=== PATIENT | female | born 1990 | race Caucasian/White ===

== ENCOUNTER 2016-10-19 20:11 | Observation (INO) | payer BC, OTHER ==
[~2016-10-19] VITALS: Ht 165.1 cm; Wt 74.8 kg
[~2016-10-19 20:11] MED LIST: ALBU17AE3 IH; CEPH500C PO; DOXY100C2 PO; HYDR-757 PO; LEVO500T69 PO; NAPR-243 PO; NITR-65 PO; OXYC-202 PO; PHEN200T27 PO; PNT40TEC PO; PRD20T PO
--- OUTSIDE RECORDS SUMMARY | 2016-10-19 20:15 | XMS REPORT | Continuity of Care Document ---
Author Author [facility] Organization [facility] Address Unknown Phone Unavailable Care Team Providers Care Blog Writer Name Role Phone ADAMRAYMUNDO DO PCP Insurance Providers Payer Name Policy Number Subscriber Name Relationship [facility] [id number] Marisa Zaragoza 18 Self / Same As Patient Advance Directives Directive Response Recorded Date/Time Advance Directives No 11/03/14 4:50pm Organ Donor No 11/03/14 4:50pm Chief Complaint and Reason for Visit Chief Complaint Abdominal/GI Problems Reason for Visit [id number] Problems Active Problems Medical Problem Onset Date Status Bronchitis Unknown Acute Hemorrhagic ovarian cyst Unknown Acute Pneumonia Unknown Acute Right lower quadrant abdominal pain Unknown Acute Right lower quadrant abdominal pain Unknown Acute Threatened miscarriage in early Unknown Acute Medications Current Home Medications Medication Dose Units Route Directions Days/Qty Instructions Start Date Doxycycline Hyclate (Vibramycin) 100 Mg 1 Each Oral Twice A Day 14 Levofloxacin 500 Mg 1 Each Oral Daily 7 08/06/14 Prednisone 20 Mg 40 Mg Oral Daily 8 08/06/14 Hydrocodone Bit/Acetaminophen 1 Each 1 Ea Oral Every 6 Hours as needed for Mild Pain 14 11/03/14 Nitrofurantoin Monohyd/M-Cryst 100 Mg 1 Tab Oral Twice A Day 14 Past Home Medications Medication Directions Ordered Status Nitrofurantoin Macrocrystals 100 Mg Capsule, 1 Each Oral Twice A Day Discontinued Cephalexin Monohydrate (Keflex) 500 Mg Capsule, 1 Each Oral Four Times Daily 12/14/13 Discontinued Phenazopyridine Hcl 200 Mg Tablet, 1 Each Oral Three Times A Day as needed for Pain 12/14/13 Discontinued Albuterol 17 Gm Inh, 2 [place] Inhalation Every 4HRS as needed for Shortness Of Breath 01/19/14 Discontinued Social History Social History Problem Response Recorded Date/Time Alcohol Use Denies Use 11/03/2014 4:50pm Recreational Drug Use No 11/03/2014 4:50pm Recent Foreign Travel No 01/20/2014 1:54am Recent Infectious Disease Exposure No 01/20/2014 1:54am Hospitalization with Isolation Denies 01/17/2016 8:42pm Hospital Discharge Instructions No hospital discharge instructions. Plan of Care Discharge Date 01/17/16 10:44pm Disposition 01 HOME, SELF-CARE Condition at Discharge Improved Instructions/Education Provided Threatened Miscarriage (ED) Prescriptions See Medication Section Referrals RAYMUNDO MEDINA DO - Primary Care Physician RERE SPRING MD - Additional Instructions/Education All discharge instructions reviewed with patient and/or family. Voiced understanding. Medications as instructed. Continue usual home medications. Drink plenty of fluids. No intercourse until released by your melt room operator. Follow-up Dr. Spring this week for recheck, repeat lab work, and scheduling outpatient repeat ultrasound. Call first thing tomorrow morning for appointment time. No tampons or vaginal douches. Return to the emergency department immediately for worsened pain, vaginal bleeding with greater than 2 pads per hour for greater than 2 hours, vaginal discharge, inability to urinate , painful urination, or any other concerns. Functional Status No functional status results. Allergies, Adverse Reactions, Alerts No known allergies. Immunizations No immunization records. Vital Signs Acute Vital Signs Vital Response Date/Time Temperature (Fahrenheit) 99.0 degrees F (97.6 - 99.5) 01/17/2016 8:42pm Temperature (Calculated Celsius) 37.92592 degrees C (36.4 - 37.5) 01/17/2016 8:42pm Temperature Source Temporal 01/17/2016 8:42pm Pulse Rate (adult) 0 bpm (60 - 90) 01/17/2016 10:44pm Respiratory Rate 0 bpm (12 - 24) 01/17/2016 10:44pm O2 Sat by Pulse Oximetry 0 % (88 - 100) 01/17/2016 10:44pm Blood Pressure 0/0 mm Hg 01/17/2016 10:44pm Blood Pressure Mean 89 mm Hg 01/17/2016 8:42pm Pain Pain Intensity 0 01/17/2016 10:44pm Height (Feet) 5 feet 01/17/2016 8:42pm Height (Inches) 5 inches 01/17/2016 8:42pm Height (Calculated Centimeters) 165.266574 cm 01/17/2016 8:42pm Weight (Pounds) 150 pounds 01/17/2016 8:42pm Weight (Calculated Kilograms) 68.644714 kilograms 01/17/2016 8:42pm Height 5 ft 5 in Weight 150 lb Body Mass Index 25.0 kg/m^2 Results Laboratory Results Test Name Result Units Flags Reference Collection Date/Time Result Date/ Time Comments White Blood Count 13.5 10^3/uL H 4.3-11.0 01/17/2016 9:02pm 01/17/2016 9: 09pm Red Blood Count 4.66 10^6/uL 4.35-5.85 01/17/2016 9:02pm 01/17/2016 9: 09pm Hemoglobin 14.6 G/DL 11.5-16.0 01/17/2016 9:02pm 01/17/2016 9:09pm Hematocrit 42 % 35-52 01/17/2016 9:02pm 01/17/2016 9:09pm Mean Corpuscular Volume 90 FL 80-99 01/17/2016 9:02pm 01/17/2016 9: 09pm Mean Corpuscular Hemoglobin 31 PG 25-34 01/17/2016 9:02pm 01/17/2016 9: 09pm Mean Corpuscular Hemoglobin Concent 35 G/DL 32-36 01/17/2016 9:02pm 9:09pm Red Cell Distribution Width 12.7 % 10.0-14.5 01/17/2016 9:02pm 2015 9:09pm Platelet Count 295 10^3/uL 130-400 01/17/2016 9:02pm 01/17/2016 9:09pm Mean Platelet Volume 10.8 FL H 7.4-10.4 01/17/2016 9:02pm 01/17/2016 9: 09pm Neutrophils (%) (Auto) 61 % 42-75 01/17/2016 9:02pm 01/17/2016 9:09pm Lymphocytes (%) (Auto) 28 % 12-44 01/17/2016 9:02pm 01/17/2016 9:09pm Monocytes (%) (Auto) 9 % 0-12 01/17/2016 9:02pm 01/17/2016 9:09pm Eosinophils (%) (Auto) 2 % 0-10 01/17/2016 9:02pm 01/17/2016 9:09pm Basophils (%) (Auto) 0 % 0-10 01/17/2016 9:02pm 01/17/2016 9:09pm Neutrophils # (Auto) 8.2 X 10^3 H 1.8-7.8 01/17/2016 9:02pm 01/17/2016 9: 09pm Lymphocytes # (Auto) 3.8 X 10^3 1.0-4.0 01/17/2016 9:02pm 01/17/2016 9: 09pm Monocytes # (Auto) 1.3 X 10^3 H 0.0-1.0 01/17/2016 9:02pm 01/17/2016 9: 09pm Eosinophils # (Auto) 0.2 10^3/uL 0.0-0.3 01/17/2016 9:02pm 01/17/2016 9 :09pm Basophils # (Auto) 0.0 10^3/uL 0.0-0.1 01/17/2016 9:02pm 01/17/2016 9: 09pm Urine Color YELLOW 01/17/2016 9:04pm 01/17/2016 9:27pm Urine Clarity CLEAR 01/17/2016 9:04pm 01/17/2016 9:27pm Urine pH 8 5-9 01/17/2016 9:04pm 01/17/2016 9:27pm Urine Specific [place] 1.015 * 1.016-1.022 01/17/2016 9:04pm 2015 9:27pm Urine Protein NEGATIVE NEGATIVE 01/17/2016 9:04pm 01/17/2016 9:27pm Urine Glucose (UA) NEGATIVE NEGATIVE 01/17/2016 9:04pm 01/17/2016 9: 27pm Urine RBC (Auto) 2+ * NEGATIVE 01/17/2016 9:04pm 01/17/2016 9:27pm Urine Ketones NEGATIVE NEGATIVE 01/17/2016 9:04pm 01/17/2016 9:27pm Urine Nitrite NEGATIVE NEGATIVE 01/17/2016 9:04pm 01/17/2016 9:27pm Urine Bilirubin NEGATIVE NEGATIVE 01/17/2016 9:04pm 01/17/2016 9: 27pm Urine Urobilinogen NORMAL MG/DL NORMAL 01/17/2016 9:04pm 01/17/2016 9: 27pm Urine Leukocyte Esterase NEGATIVE NEGATIVE 01/17/2016 9:04pm 2015 9:27pm Urine RBC 0-2 /HPF 01/17/2016 9:04pm 01/17/2016 9:27pm Urine WBC NONE /HPF 01/17/2016 9:04pm 01/17/2016 9:27pm Urine Bacteria TRACE /HPF 01/17/2016 9:04pm 01/17/2016 9:27pm Urine Squamous Epithelial Cells 2-5 /HPF 01/17/2016 9:04pm 2015 9:27pm Urine Crystals NONE /LPF 01/17/2016 9:04pm 01/17/2016 9:27pm Urine Casts NONE /LPF 01/17/2016 9:04pm 01/17/2016 9:27pm Urine Mucus NEGATIVE /LPF 01/17/2016 9:04pm 01/17/2016 9:27pm Urine Culture Indicated NO 01/17/2016 9:04pm 01/17/2016 9:27pm Procedures No known history of procedures. Encounters Encounter Location Arrival/Admit Date Discharge/Depart Date Attending Provider Departed Emergency Room [facility] 01/17/16 8:24pm 01/16 10:44pm SINTIA JOHNSON Recent Diagnosis
[2016-10-19 20:58] LABS: BASOPHILS % (AUTO) 0 % (0-10); EOSINOPHILS # (AUTO) 0.2 10^3/uL (0.0-0.3); EOSINOPHILS % (AUTO) 1 % (0-10); LYMPHOCYTES # (AUTO) 2.6 X 10^3 (1.0-4.0); LYMPHOCYTES % (AUTO) 15 % (12-44); MEAN CORPUSCULAR HEMOGLOBIN 31 PG (25-34); MEAN CORPUSCULAR HGB CONC 35 G/DL (32-36); MEAN CORPUSCULAR VOLUME 90 FL (80-99); MEAN PLATELET VOLUME 10.4 FL (7.4-10.4); MONOCYTES # (AUTO) 1.3 X 10^3 (0.0-1.0); MONOCYTES % (AUTO) 8 % (0-12); NEUTROPHILS # (AUTO) 13.4 X 10^3 (1.8-7.8); NEUTROPHILS % (AUTO) 77 % (42-75); PLATELET COUNT 303 10^3/uL (130-400); RED BLOOD COUNT 4.01 10^6/uL (4.35-5.85); RED CELL DISTRIBUTION WIDTH 13.6 % (10.0-14.5); WHITE BLOOD COUNT 17.5 10^3/uL (4.3-11.0)
[2016-10-19 21:08] LABS: BAND NEUTROPHILS 2 %; BASOPHILS % (MANUAL) 1 %; EOSINOPHILS % (MANUAL) 2 %; LYMPHOCYTES % (MANUAL) 19 %; NEUTROPHILS % (MANUAL) 71 %
[2016-10-19 21:09] LABS: INR 0.9 (0.8-1.4); PROTHROMBIN TIME PATIENT 12.2 SEC (12.2-14.7)
[2016-10-19 21:20] LABS: ALANINE AMINOTRANSFERASE 6 U/L (0-55); ALBUMIN 3.7 G/DL (3.2-4.5); AMYLASE 61 U/L (25-125); ANION GAP 11 MMOL/L (5-14); ASPARTATE AMINO TRANSFERASE 11 U/L (5-34); BILIRUBIN,TOTAL 0.2 MG/DL (0.1-1.0); BLOOD UREA NITROGEN 8 MG/DL (7-18); BUN/CREATININE RATIO 13; CALCIUM 8.6 MG/DL (8.5-10.1); CARBON DIOXIDE 18 MMOL/L (21-32); CHLORIDE 108 MMOL/L (98-107); CREATINE KINASE 34 U/L (29-168); GFR ESTIMATED > 60; GLUCOSE 78 MG/DL (70-105); LIPASE 27 U/L (8-78); MAGNESIUM 2.1 MG/DL (1.8-2.4); POTASSIUM 3.6 MMOL/L (3.6-5.0); SODIUM 137 MMOL/L (135-145); TOTAL PROTEIN 6.2 G/DL (6.4-8.2)
--- NOTE | 2016-10-19 21:24 | Diagnostic Imaging Report ---
INDICATION: Cough, shortness of breath. COMPARISON: 08/05/14. EXAMINATION: Frontal and lateral views of the chest were obtained. FINDINGS: Clear lungs, bilaterally. The heart size is normal. There is no pneumothorax. The osseous structures are normal. IMPRESSION: Negative chest. Dictated by: Dictated on workstation # [id number]
[2016-10-19 21:27] LABS: TROPONIN I < 0.30 NG/ML (<0.30)
--- NOTE | 2016-10-19 21:39 | ED Chest Pain ---
General Chief Complaint: Respiratory Problems Stated Complaint: SOA;CHEST PAIN Source: patient History of Present Illness Time seen by provider: 20:30 Initial Comments PT ARRIVES VIA POV FROM HOME C/O CHEST PAIN, SHORTNESS OF BREATH AND ELEVATED HEART RATE THESE SYMPTOMS HAVE BEEN GOING ON FOR A COUPLE OF WEEKS STATES WHOLE FRONT OF HER CHEST HURTS TO BREATHE HAS HAD A NON-PRODUCTIVE COUGH FOR 6 MONTHS NO FEVER NO SWELLING IN LEGS/ FEET OR PAIN IN CAL[place]ES PT STATES TONIGHT SHE WAS WALKING TO THE KITCHEN AND SHE GOT SHORT OF BREATH AND HER HEART RATE WAS 120 SYMPTOMS ARE NO DIFFERENT TONIGHT AND ARE NOT PRESENT NOW. PT IS 26 WEEKS --HAS BEEN REFERRED TO DR. REYES AND SAW HIM ON Monday AND HOLTER MONITOR AND ECHOCARDIOGRAM ARE ORDERED FOR TOMORROW NO ABDOMINAL PAIN NO VAGINAL BLEEDING OR DISCHARGE NO URINARY SYMPTOMS PCP: DR. MEDINA IN [place] OB: DR. FLOWER Allergies and Home Medications Allergies Coded Allergies: No Known Drug Allergies (Unverified , 02/18/16) Home Medications Ioi159/Iron Fumarate/FA/Dss 1 Each Tablet 1 EACH PO (Reported) Review of Systems Constitutional: no symptoms reportedNo diaphoresis, No dizziness EENTM: No Symptoms Reported Respiratory: See HPI SOA With Exertion Cardiovascular: See HPI Chest PainDenies Edema, Denies Lightheadedness, PalpitationsDenies Syncope Gastrointestinal: No Symptoms ReportedDenies Abdominal Pain, Denies Nausea, Denies Vomiting Genitourinary: No Symptoms Reported See HPI Musculoskeletal: no symptoms reported Skin: no symptoms reported Psychiatric/Neurological: No Symptoms ReportedDenies Headache, Denies Numbness , Denies Paresthesia, Denies Tingling, Denies Weakness Endocrine: No Symptoms Reported Hematologic/Lymphatic: No Symptoms Reported Past Kofvnfu-Yznddt-Nasvxb Hx Patient Social History Alcohol Use: Denies Use Recreational Drug Use: No Smoking Status: Former Smoker (1/2 PPD--QUIT WHEN BECOMING ) Type Used: Cigarettes 2nd Hand Smoke Exposure: No Recent Foreign Travel: No Contact w/Someone Who Travel: No Recent Hopitalizations: No Seasonal Allergies Seasonal Allergies: No Surgeries HX Surgeries: Yes (D&C; X 1) Surgeries: Appendectomy, Section, Tonsillectomy Respiratory Hx Respiratory Disorders: No Cardiovascular Hx Cardiac Disorders: No Neurological Hx Neurological Disorders: No Reproductive System : Yes Hx : 4 Hx Para: 1 Hx Total # of Abortions (Spona: 2 Hx Reproductive Disorders: Yes (2 MISCARRIAGES) HIV/AIDS: No Female Reproductive Disorders: Endometriosis, 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 Genitourinary Hx Genitourinary Disorders: Yes Genitourinary Disorders: UTI-Chronic Gastrointestinal Hx Gastrointestinal Disorders: No Musculoskeletal Hx Musculoskeletal Disorders: No Endocrine Hx Endocrine Disorders: No HEENT HX ENT Disorders: No Cancer Hx Cancer: No Psychosocial Hx Psychiatric Problems: No Integumentary HX Skin/Integumentary Disorder: No Blood Transfusions Hx Blood Disorders: No Adverse Reaction to a Blood Tr: No (N/A) Physical Exam Vital Signs Vital Sign - Last 12Hours 10/19/16 20:34 Temp 98.8 Pulse 99 Resp 20 B/P 118/77 Pulse Ox 98 O2 Delivery Room Air Capillary Refill : General Appearance: No Apparent Distress WD/WN HEENT: PERRL/EOMI Neck: Full Range of Motion Normal Inspection Non Tender Supple Respiratory: Normal Breath Sounds No Accessory Muscle Use No Respiratory Distress Cardiovascular: Regular Rate, Rhythm No Edema No JVD No Murmur Normal Peripheral Pulses Gastrointestinal: Normal Bowel Sounds No Pulsatile Mass Non Tender Soft Other (GRAVID UTERUS) Extremity: Normal Capillary Refill Normal Inspection Normal Range of Motion Non Tender No Calf Tenderness No Pedal Edema Neurologic/Psychiatric: Alert Oriented x3 No Motor/Sensory Deficits Normal 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 Norm as Tested Skin: Normal Color Warm/Dry Progress/Results/Core Measures Results/Orders Lab Results Laboratory Tests Test 10/19/16 20:45 Range/Units Activated Partial Thromboplast Time 26 24-35 SEC Alanine Aminotransferase (ALT/SGPT) 6 0-55 U/L Albumin 3.7 3.2-4.5 G/DL Alkaline Phosphatase 110 40-136 U/L Amylase Level 61 25-125 U/L Anion Gap 11 5-14 MMOL/L Aspartate Amino Transf (AST/SGOT) 11 5-34 U/L B-Type Natriuretic Peptide < 10.0 <100.0 PG/ML BUN/Creatinine Ratio 13 Band Neutrophils 2 % Basophils # (Auto) 0.0 0.0-0.1 10^3/uL Basophils % (Manual) 1 % Basophils (%) (Auto) 0 0-10 % Blood Morphology Comment NORMAL Blood Urea Nitrogen 8 7-18 MG/DL Calcium Level 8.6 8.5-10.1 MG/DL Carbon Dioxide Level 18 L 21-32 MMOL/L Chloride Level 108 H 98-107 MMOL/L Creatine Kinase MB 0.7 <6.6 NG/ML Creatinine 0.60 0.60-1.30 MG/DL Eosinophils # (Auto) 0.2 0.0-0.3 10^3/uL Eosinophils % (Manual) 2 % Eosinophils (%) (Auto) 1 0-10 % Estimat Glomerular Filtration Rate > 60 Glucose Level 78 70-105 MG/DL Hematocrit 36 35-52 % Hemoglobin 12.6 11.5-16.0 G/DL INR Comment 0.9 0.8-1.4 Lipase 27 8-78 U/L Lymphocytes # (Auto) 2.6 1.0-4.0 X 10^3 Lymphocytes % (Manual) 19 % Lymphocytes (%) (Auto) 15 12-44 % Magnesium Level 2.1 1.8-2.4 MG/DL Mean Corpuscular Hemoglobin 31 25-34 PG Mean Corpuscular Hemoglobin Concent 35 32-36 G/DL Mean Corpuscular Volume 90 80-99 FL Mean Platelet Volume 10.4 7.4-10.4 FL Monocytes # (Auto) 1.3 H 0.0-1.0 X 10^3 Monocytes % (Manual) 5 % Monocytes (%) (Auto) 8 0-12 % Neutrophils # (Auto) 13.4 H 1.8-7.8 X 10^3 Neutrophils % (Manual) 71 % Neutrophils (%) (Auto) 77 H 42-75 % Platelet Count 303 130-400 10^3/uL Potassium Level 3.6 3.6-5.0 MMOL/L Prothrombin Time 12.2 12.2-14.7 SEC Red Blood Count 4.01 L 4.35-5.85 10^6/uL Red Cell Distribution Width 13.6 10.0-14.5 % Sodium Level 137 135-145 MMOL/L Total Bilirubin 0.2 0.1-1.0 MG/DL Total Creatine Kinase 34 29-168 U/L Total Protein 6.2 L 6.4-8.2 G/DL Troponin I < 0.30 <0.30 NG/ML White Blood Count 17.5 H 4.3-11.0 10^3/uL My Orders Orders-KOMAL LEONARDO DO Saline Lock/Iv-Start (10/19/16 20:41) Ekg Tracing (10/19/16 20:41) Heart Tones (10/19/16 20:41) Monitor-Rhythm Ecg Trace Only (10/19/16 20:41) Amylase (10/19/16 20:41) BNP (10/19/16 20:41) Cbc With Automated Diff (10/19/16 20:41) Comprehensive Metabolic Panel (10/19/16 20:41) Creatine Kinase (10/19/16 20:41) Creatine Kinase Mb (10/19/16 20:41) Lipase (10/19/16 20:41) Magnesium (10/19/16 20:41) Protime With Inr (10/19/16 20:41) Partial Thromboplastin Time (10/19/16 20:41) Troponin I (10/19/16 20:41) Chest Pa/Lat (2 View) (10/19/16 20:41) Manual Differential (10/19/16 20:45) Vital Signs/I&O Vital Sign - Last 12Hours 10/19/16 20:34 Temp 98.8 Pulse 99 Resp 20 B/P 118/77 Pulse Ox 98 O2 Delivery Room Air Progress Note : Progress Note NO SYMPTOMS DURING ER STAY ECG Initial ECG Impression Time: 20:43 Initial ECG Rate: 85 Initial ECG Rhythm: Normal Sinus Initial ECG Impression: Normal Initial ECG Comparisson: No Previous ECG Available Diagnostic Imaging Comments CXR--NO ACUTE PROCESS, PER RADIOLOGIST REPORT @ 4 Reviewed: Reviewed by Me Departure Communication Progress Notes 2134--SPOKE WITH DR. FLOWER--ACCEPTS PT FOR ADMIT. Impression Impression: Primary Impression: Chest pain Additional Impressions: Palpitations Dyspnea 26 weeks gestation of Disposition: 09 ADMITTED INPATIENT Condition: Stable Decision to Admit Reason: Admit from ER (General) Decision to Admit/Date: Oct 19, 2016 Time/Decision to Admit Time: 21:35 Departure-Patient Inst. Referrals: RAYMUNDO MEDINA DO (PCP/Family) Primary Care Physician KOMAL LEONARDO DO Oct 19, 2016 21:39
[2016-10-19 22:10] VITALS: BP 105/68
[2016-10-19] MEDS ORDERED: PREN-53 PO (23:12)
[2016-10-20 02:00] VITALS: BP 92/57
[2016-10-20 06:01] VITALS: BP 89/59
[2016-10-20 06:18] LABS: BASOPHILS % (AUTO) 0 % (0-10); EOSINOPHILS # (AUTO) 0.2 10^3/uL (0.0-0.3); EOSINOPHILS % (AUTO) 2 % (0-10); LYMPHOCYTES # (AUTO) 2.2 X 10^3 (1.0-4.0); LYMPHOCYTES % (AUTO) 19 % (12-44); MEAN CORPUSCULAR HEMOGLOBIN 31 PG (25-34); MEAN CORPUSCULAR HGB CONC 34 G/DL (32-36); MEAN CORPUSCULAR VOLUME 91 FL (80-99); MEAN PLATELET VOLUME 10.3 FL (7.4-10.4); MONOCYTES # (AUTO) 1.1 X 10^3 (0.0-1.0); MONOCYTES % (AUTO) 9 % (0-12); NEUTROPHILS # (AUTO) 8.4 X 10^3 (1.8-7.8); NEUTROPHILS % (AUTO) 70 % (42-75); PLATELET COUNT 288 10^3/uL (130-400); RED BLOOD COUNT 3.63 10^6/uL (4.35-5.85); RED CELL DISTRIBUTION WIDTH 13.7 % (10.0-14.5); WHITE BLOOD COUNT 11.9 10^3/uL (4.3-11.0)
[2016-10-20 06:45] LABS: ALANINE AMINOTRANSFERASE 6 U/L (0-55); ALBUMIN 3.2 G/DL (3.2-4.5); ANION GAP 10 MMOL/L (5-14); ASPARTATE AMINO TRANSFERASE 9 U/L (5-34); BILIRUBIN,TOTAL 0.1 MG/DL (0.1-1.0); BLOOD UREA NITROGEN 6 MG/DL (7-18); BUN/CREATININE RATIO 11; CALCIUM 8.1 MG/DL (8.5-10.1); CARBON DIOXIDE 17 MMOL/L (21-32); CHLORIDE 110 MMOL/L (98-107); CREATININE SERUM 0.55 MG/DL (0.60-1.30); GFR ESTIMATED > 60; GLUCOSE 120 MG/DL (70-105); POTASSIUM 3.6 MMOL/L (3.6-5.0); SODIUM 137 MMOL/L (135-145); TOTAL PROTEIN 5.3 G/DL (6.4-8.2)
[2016-10-20 08:15] VITALS: BP 112/63
--- NOTE | 2016-10-20 08:27 | Consultation-Cardiology ---
HPI-Cardiology Cardiology Consultation Date of Consultation 10/20/16 Date of Admission Indication: palpitation HPI 26 years old lady, , has been having recurrent palpitation, seen in my office earlier this week and scheduled for echocardiogram and Holter evaluation. Yesterday started having worsening palpitation shortness of breath with minimal exertion at home. Came into the emergency room, so far workup has been negative. She is feeling better. Complain about palpitation with minimal exertion increasing dyspnea with minimal exertion addition to cough, her chest x -ray did not show any acute abnormality, has mild leukocytosis. BNP is normal. Home Medications & Allergies Allergies: Coded Allergies: No Known Drug Allergies (Unverified , 02/18/16) Home Medication List Reviewed: Yes CVH-Ftncuu-Kdrwua Hx Patient Social History Marital Status: Alcohol Use: Denies Use Recreational Drug Use: No Smoking Status: Former Smoker (/2 PPD--QUIT WHEN BECOMING ) Type Used: Cigarettes 2nd Hand Smoke Exposure: No Recent Foreign Travel: No Recent Infectious Disease Expo: No Recent Hopitalizations: No Physical Abuse Screen: No Sexual Abuse: No Immunizations Up To Date Date of Influenza Vaccine: Jul 20, 2017 Past Medical History no significant past medical history Family Medical History Family Medical Hx noncontributory to her current condition Constitutional: no symptoms reported see HPI EENTM: no symptoms reported see HPI Respiratory: see HPI cough dyspnea on exertionNo hemoptysis, No orthopnea, No phlegm, No short of breath, No stridor, No wheezing, No other Cardiovascular: see HPI chest painNo edema, No Hx of Intervention, palpitationsNo syncope, No vascular heart diseas, No other Gastrointestinal: no symptoms reported see HPI Genitourinary: no symptoms reported see HPI Musculoskeletal: no symptoms reported see HPI Skin: no symptoms reported see HPI Psychiatric/Neurological: No Symptoms Reported See HPI Reviewed Test Results Reviewed Test Results Lab Laboratory Tests Test 10/19/16 20:45 10/20/16 06:08 Range/Units Activated Partial Thromboplast Time 26 24-35 SEC Alanine Aminotransferase (ALT/SGPT) 6 6 0-55 U/L Albumin 3.7 3.2 3.2-4.5 G/DL Alkaline Phosphatase 110 96 40-136 U/L Amylase Level 61 25-125 U/L Anion Gap 11 10 5-14 MMOL/L Aspartate Amino Transf (AST/SGOT) 11 9 5-34 U/L B-Type Natriuretic Peptide < 10.0 <100.0 PG/ML BUN/Creatinine Ratio 13 11 Band Neutrophils 2 % Basophils # (Auto) 0.0 0.0 0.0-0.1 10^3/uL Basophils % (Manual) 1 % Basophils (%) (Auto) 0 0 0-10 % Blood Morphology Comment NORMAL Blood Urea Nitrogen 8 6 L 7-18 MG/DL Calcium Level 8.6 8.1 L 8.5-10.1 MG/DL Carbon Dioxide Level 18 L 17 L 21-32 MMOL/L Chloride Level 108 H 110 H 98-107 MMOL/L Creatine Kinase MB 0.7 <6.6 NG/ML Creatinine 0.60 0.55 L 0.60-1.30 MG/DL Eosinophils # (Auto) 0.2 0.2 0.0-0.3 10^3/uL Eosinophils % (Manual) 2 % Eosinophils (%) (Auto) 1 2 0-10 % Estimat Glomerular Filtration Rate > 60 > 60 Glucose Level 78 120 H 70-105 MG/DL Hematocrit 36 33 L 35-52 % Hemoglobin 12.6 11.3 L 11.5-16.0 G/DL INR Comment 0.9 0.8-1.4 Lipase 27 8-78 U/L Lymphocytes # (Auto) 2.6 2.2 1.0-4.0 X 10^3 Lymphocytes % (Manual) 19 % Lymphocytes (%) (Auto) 15 19 12-44 % Magnesium Level 2.1 1.8-2.4 MG/DL Mean Corpuscular Hemoglobin 31 31 25-34 PG Mean Corpuscular Hemoglobin Concent 35 34 32-36 G/DL Mean Corpuscular Volume 90 91 80-99 FL Mean Platelet Volume 10.4 10.3 7.4-10.4 FL Monocytes # (Auto) 1.3 H 1.1 H 0.0-1.0 X 10^3 Monocytes % (Manual) 5 % Monocytes (%) (Auto) 8 9 0-12 % Neutrophils # (Auto) 13.4 H 8.4 H 1.8-7.8 X 10^3 Neutrophils % (Manual) 71 % Neutrophils (%) (Auto) 77 H 70 42-75 % Platelet Count 303 288 130-400 10^3/uL Potassium Level 3.6 3.6 3.6-5.0 MMOL/L Prothrombin Time 12.2 12.2-14.7 SEC Red Blood Count 4.01 L 3.63 L 4.35-5.85 10^6/uL Red Cell Distribution Width 13.6 13.7 10.0-14.5 % Sodium Level 137 137 135-145 MMOL/L Total Bilirubin 0.2 0.1 0.1-1.0 MG/DL Total Creatine Kinase 34 29-168 U/L Total Protein 6.2 L 5.3 L 6.4-8.2 G/DL Troponin I < 0.30 <0.30 NG/ML White Blood Count 17.5 H 11.9 H 4.3-11.0 10^3/uL Physical Exam Vital Signs Vital Sign - Last 12Hours 10/19/16 20:34 Temp 98.8 Pulse 99 Resp 20 B/P 118/77 Pulse Ox 98 O2 Delivery Room Air Capillary Refill : Less Than 3 Seconds General Appearance: No Apparent Distress WD/WN Eyes: Bilateral Eye EOMI, Bilateral Eye Normal Inspection, Bilateral Eye PERRL HEENT: PERRL/EOMI TMs Normal Normal ENT Inspection Pharynx Normal Neck: Full Range of Motion Normal Inspection Non Tender Supple Carotid Bruit Respiratory: Chest Non Tender Lungs Clear Normal Breath Sounds No Accessory Muscle Use No Respiratory Distress Cardiovascular: Regular Rate, Rhythm No Edema No Gallop No JVD No Murmur Normal Peripheral Pulses Gastrointestinal: Normal Bowel Sounds No Organomegaly No Pulsatile Mass Non Tender Soft Other () Back: Normal Inspection No CVA Tenderness No Vertebral Tenderness Extremity: Normal Capillary Refill Normal Inspection Normal Range of Motion Non Tender No Calf Tenderness No Pedal Edema Neurologic/Psychiatric: Alert Oriented x3 No Motor/Sensory Deficits Normal Mood/Affect Skin: Normal Color Warm/Dry Lymphatic: No Adenopathy A/P-Cardiology Admission Diagnosis palpitation Shortness of breath Hypotension Assessment/Plan Recurrent palpitation, worsening episode last night with a heart rate 120-130 with minimal exertion, during the hospital stay on telemetry did not have any arrhythmia, heart rate is less than 100. Cannot tolerate beta alissa due to hypotension, I will give IV fluid. She was scheduled for Holter monitor and echocardiogram as an outpatient, I will evaluate an echo and evaluate venous Doppler study of her lower extremities. Still planning for Holter monitor as an outpatient. Borderline hypotension, I will give IV fluid and monitor. Episode of dizziness and lightheadedness, educated on increasing fluid intake and monitoring her symptoms. , [address] Reagan Family history of hypertension History of tobaccoism, she has stopped smoking since her . DIONE REYES MD Oct 20, 2016 08:27
[2016-10-20] MEDS ORDERED: NS IV 1000 ML 1,000 ML IV SCH (08:30)
--- NOTE | 2016-10-20 08:58 | Diagnostic Imaging Report ---
EXAMINATION: Bilateral lower extremity duplex venous ultrasound. TECHNIQUE: DVT protocol. Multiple sonographic images with color Doppler and waveform interrogation were performed of the lower extremity veins, bilaterally, with compression and augmentation maneuvers. INDICATION: Chest pain. FINDINGS: The lower extremity veins from the common femoral veins to below the knee veins were examined with normal color-flow, compressibility and normal waveform demonstrated. The great saphenous vein bilaterally is patent. IMPRESSION: No evidence of DVT in either lower extremity. Dictated by: Dictated on workstation # [id number]
[2016-10-20] MEDS: NS IV 1000 ML 1,000 ML IV SCH ×2 (09:15→11:20)
--- NOTE | 2016-10-20 09:24 | Discharge Inst-Women's Service ---
Discharge Inst-Women's Serv Consults/Follow Up Additional Follow Up: Yes Orders/Referrals Dr. Flower at next scheduled appointment, and Dr. Leigh(after Holter monitor) Activity Activity: Activity as Tolerated Driving Instructions: You May Drive NO SMOKING: NO SMOKING Diet Discharge Diet: No Restrictions Symptoms to Report to : Bleeding Excessive, Pain Increased, Fever Over 101 Degrees F, Pain/Pressure in Chest, Questions/Concerns For Any Problems or Questions: Contact Your Physician MERY FLOWER DO Oct 20, 2016 9:24 am
== END 2016-10-20 09:24 | disposition home or self-care (01) ==
LOC: EDUNIT# 20:11 → ER 20:12 → UNDOADMOB 21:35 → LDRP 21:35 → UNDODISOB 10-20 12:30
PROVIDERS: ADMIT Obstetrics & Gynecology; ATTEND Obstetrics & Gynecology
DX: O99.412 Diseases of the circulatory system complicating pregnancy, second trimester (principal); R00.2 Palpitations; R06.02 Shortness of breath; Z3A.26 26 weeks gestation of pregnancy; Z87.891 Personal history of nicotine dependence
CPT/HCPCS: 36415; 71020; 80053; 82150; 82550; 82553; 83690; 83735; 83880; 84484; 85007; 85025; 85027; 85610; 85730; 93005; 93041; 93970; 96360; 96361; G0378

== ENCOUNTER 2016-10-20 12:39 | Outpatient (RCR) | payer BC, OTHER ==
[~2016-10-20 12:39] MED LIST changes: +PREN-53 PO
--- OUTSIDE RECORDS SUMMARY | 2016-10-20 12:43 | XMS REPORT | Continuity of Care Document ---
Author Author [facility] Organization [facility] [address] Address Unknown Phone Unavailable Care Team Providers Care Paint Stockman Name Role Phone ADAMRAYMUNDO DO PCP Insurance Providers Payer Name Policy Number Subscriber Name Relationship [facility] [id number] Marisa Zaragoza 18 Self / Same As Patient Advance Directives Directive Response Recorded Date/Time Advance Directives No 11/03/14 4:50pm Organ Donor No 11/03/14 4:50pm Chief Complaint and Reason for Visit Chief Complaint Abdominal/GI Problems Reason for Visit [id number] Problems Active Problems Medical Problem Onset Date [...] 12/14/13 Discontinued Albuterol 17 Gm Inh, 2 [place] Inhalation Every 4HRS as needed for Shortness [...] fluids. No intercourse until released by your subscription agent. Follow-up Dr. Spring this week for recheck, [...] - 99.5) 01/17/2016 8:42pm Temperature (Calculated Celsius) 37.59846 degrees C (36.4 - 37.5) 01/17/2016 8:42pm [...] 5 inches 01/17/2016 8:42pm Height (Calculated Centimeters) 165.893183 cm 01/17/2016 8:42pm Weight (Pounds) 150 pounds 01/17/2016 8:42pm Weight (Calculated Kilograms) 68.416696 kilograms 01/17/2016 8:42pm Height 5 ft 5 [...] 5-9 01/17/2016 9:04pm 01/17/2016 9:27pm Urine Specific [place] 1.015 * 1.016-1.022 01/17/2016 9:04pm 2015 9:27pm [...] Date Attending Provider Departed Emergency Room [facility] [address] 01/17/16 8:24pm 01/16 10:44pm SINTIA JOHNSON Recent Diagnosis
--- NOTE | 2016-10-21 10:20 | ECHOCARDIOGRAPHY REPORT ---
PROCEDURE PHYSICIAN: DIONE REYES DATE OF PROCEDURE: 10/20/2016 TWO DIMENSIONAL ECHOCARDIOGRAM REPORT PRIMARY PHYSICIAN: OTHER PHYSICIAN: REFERRING PHYSICIAN: Dr. Reagan ORDERING PHYSICIAN: INDICATION FOR THE PROCEDURE: Chest pain, palpitations MEASUREMENTS DERIVED VALUES LV DIAMETER (LAX) NORMALS NORMALS Diastolic 4.6 (3.6-5.2) Eject. Fract. 60% (60%+/-6%) Systolic (2.3-3.9) Diastolic Vol. % Shortening (0.22-0.42) Systolic Vol. Aortic Root IVS THICKNESS Diastolic 1. (0.6-1.1) LVPW THICKNESS Diastolic 1. (0.6-1.1) LA DIAMETER Systolic 3.5 (2.1-3.7) FINDINGS: 1. Technical quality is good. 2. The left ventricle is normal in size with normal contractility. Systolic function appeared to be normal. Estimated ejection fraction 60%. 3. The left atrium is normal in size. No clot or thrombus were seen within the left atrium. 4. The right atrium and right ventricle are normal in size. No clot or thrombus were seen within the right side. 5. Mitral valve is normal in morphology with mild mitral regurgitation noted by color Doppler flow. No mitral valve prolapse. No mitral valve stenosis. 6. Aortic valve is trileaflet with normal opening and closing pattern. No significant aortic stenosis or regurgitation was seen. 7. Tricuspid valve is normal in morphology with mild tricuspid regurgitation noted by color Doppler flow. Doppler across tricuspid valve estimated pulmonary artery pressure of 26+ right atrial pressure. 8. Pulmonic valve is functioning normally. 9. No pericardial effusion. CONCLUSION: 1. Normal left ventricular size and systolic function. Estimated ejection fraction 60%. 2. Mild mitral and tricuspid regurgitation. 3. Estimated pulmonary artery pressure of 30 to 35 mmHg. Job ID: [id number] Dictated Date: 10/20/2016 14:11:27 Autocad Operator Date: 10/21/2016 10:16:20 / sd
[2017-01-19] MEDS ORDERED: DOCU100C37 PO (08:08)
[2017-01-19] MEDS ORDERED: HYDR-3812 PO (08:08)
[2017-01-19] MEDS ORDERED: IBUP-1773 PO (08:08)
== END 2017-01-18 | disposition home or self-care (01) ==
LOC: CARD 12:39
PROVIDERS: ATTEND Internal Medicine Cardiovascular Disease
DX: O99.89 Other specified diseases and conditions complicating pregnancy, childbirth and the puerperium (principal); R00.2 Palpitations; Z82.49 Family history of ischemic heart disease and other diseases of the circulatory system
CPT/HCPCS: 93225; 93226; 93306

== ENCOUNTER 2016-10-27 08:52 | Outpatient (CLI) | payer BC, OTHER ==
[~2016-10-27] VITALS: Ht 165.1 cm; Wt 74.6 kg
--- OUTSIDE RECORDS SUMMARY | 2016-10-27 08:57 | XMS REPORT | Continuity of Care Document ---
Author Author [facility] Organization [facility] Address Unknown Phone Unavailable Care Team Providers Care Cupola Repairer Name Role Phone ADAMRAYMUNDO DO PCP Insurance Providers Payer Name Policy Number Subscriber Name Relationship Rust [id number] Marisa Zaragoza 18 Self / Same As Patient Advance Directives Directive Response Recorded Date/Time Advance Directives No 11/03/14 4:50pm Organ Donor No 11/03/14 4:50pm Chief Complaint and Reason for Visit Chief Complaint Abdominal/GI Problems Reason for Visit [id number] Problems Active Problems Medical Problem Onset Date [...] 12/14/13 Discontinued Albuterol 17 Gm Inh, 2 [place] Inhalation Every 4HRS as needed for Shortness [...] fluids. 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 Follow-up Dr. Spring this week for recheck, [...] - 99.5) 01/17/2016 8:42pm Temperature (Calculated Celsius) 37.95975 degrees C (36.4 - 37.5) 01/17/2016 8:42pm [...] 5 inches 01/17/2016 8:42pm Height (Calculated Centimeters) 165.151282 cm 01/17/2016 8:42pm Weight (Pounds) 150 pounds 01/17/2016 8:42pm Weight (Calculated Kilograms) 68.860934 kilograms 01/17/2016 8:42pm Height 5 ft 5 [...] 5-9 01/17/2016 9:04pm 01/17/2016 9:27pm Urine Specific [place] 1.015 * 1.016-1.022 01/17/2016 9:04pm 2015 9:27pm [...] Date Attending Provider Departed Emergency Room [facility] 01/17/16 8:24pm 01/16 10:44pm SINTIA JOHNSON Recent Diagnosis
[2016-10-27] MEDS ORDERED: ceFAZolin 1,000 MG (ANCEF) VIAL ONE (11:14)
[2016-10-27] MEDS ORDERED: ONDANSETRON 4 MG/2 ML (SDV) Z0FRAN IVP PRN (11:15)
[2016-10-27] MEDS ORDERED: morphine INJ 5 MG/ML 1 ML VIAL IVP PRN (11:15)
--- NOTE | 2016-10-27 11:19 | Diagnostic Imaging Report ---
INDICATION: Gross hematuria, 27 weeks . COMPARISON: None. DISCUSSION: Transabdominal sonographic evaluation of the bilateral kidneys and urinary bladder was performed. There is [id number] right hydronephrosis of uncertain etiology. No shadowing stone identified. The left kidney is normal in echotexture and size. No hydronephrosis on the left. No renal mass identified. Urinary bladder is decompressed. The ureteral jets were not visualized. The right kidney measures 13.5 cm. The left kidney measures 11.4 cm. IMPRESSION: 1. Hnuumudn-ek-knyxdg right hydronephrosis of uncertain etiology. Dictated by: Dictated on workstation # [id number]
[2016-10-27] MEDS ORDERED: morphine INJ 4 MG/ML 1 ML (VIAL/SYRINGE) ONE ×2 (11:20)
--- NOTE | 2016-10-27 11:22 | History & Physical-OB ---
OB - Chief Complaint & HPI Date Date of Admission: Date of Admission: Chief Complaint/History OB-Reason for Admission/Chief: Right hydronephrosis with suspected right nephrolithiasis Hx : 3 Hx Para: 2 Expected Date of Delivery: January 26, 2017 Gestational Age in Weeks: 26 Other reason for admission: Right hydronephrosis with suspected right nephrolithiasis. Patient presents with significant pain and cramping of the right lower abdomen and suprapubically. As well at large blood on UA. Admission Nurse Assessment Rev: Yes Allergies and Home Medications Allergies Coded Allergies: No Known Drug Allergies (Unverified , 02/18/16) Home Medications [id number]/Iron Fumarate/FA/Dss 1 Each Tablet 1 EACH PO (Reported) OB - History Hx of Present Care: Yes Ultrasounds: Normal mid trimester US Obstetrical Complications: None Medical Complications: Other (Hypotension and palpitations) Obstetrical History Hx : 3 Hx Para: 2 Hx Total # of Abortions (Spona: 1 Delivery History Hx Blood Disorders: No Adverse Rxn to Tranfusion: No (N/A) Patient Past Medical History n/a Social History/Family History HIV/AIDS: No Recent Infectious Disease Expo: No 2nd Hand Smoke Exposure: No Immunizations Date of Influenza Vaccine: Jul 20, 2017 OB - Admission Exam Physical Exam HEENT: NCAT Heart: Rhythm Normal Lungs: Clear Abdomen: Gravid Heart Rate: 130's Accelerations: Accelerations Present Decelerations: No Decelerations Short Term Variability: Present Nursing Home Variability: Average (6-25) Contractions on Admission: None OB - Assessment/Plan/Diagnosis Plan Other Plan Patient admitted for IVF bolus, IV pain medication as needed and antibiotic treatment. Straining urine and will anticipate dc later today or tomorrow morning. Discharge Diagnosis Diagnosis: 26 yo @ 28weeks gestation Nephrolithiasis- acute pelvic pain Hematuria Right mild-moderate hydronephrosis MERY FLOWER DO Oct 27, 2016 11:22 am
[2016-10-27] MEDS ORDERED: ceFAZolin INJECTION 1,000 MG in NS (IVPB) 50 ML IV NR (11:24)
[2016-10-27] MEDS ORDERED: morphine INJ 10 MG/ML 1ML (SYR OR VIAL) IV PRN (11:30)
[2016-10-27] MEDS: NS IV 1000 ML 1,000 ML IV SCH ×2 (11:47→16:40)
== END 2016-10-27 18:05 | disposition home or self-care (01) ==
LOC: WSo 08:52 → LDRP 08:53 → WSo 18:05
PROVIDERS: ATTEND Obstetrics & Gynecology
DX: O99.89 Other specified diseases and conditions complicating pregnancy, childbirth and the puerperium (principal); N20.0 Calculus of kidney; N13.30 Unspecified hydronephrosis; Z3A.28 28 weeks gestation of pregnancy
CPT/HCPCS: 76770; 96374; 96375; 99214

== ENCOUNTER → 2016-11-08 | Outpatient (CLI) | payer BC, OTHER ==
--- OUTSIDE RECORDS SUMMARY | 2016-11-08 10:07 | XMS REPORT | Continuity of Care Document ---
Author Author [facility] Organization [facility] Address Unknown Phone Unavailable Care Team Providers Care Gold Leaf Gilder Name Role Phone MERY FLOWER DO PCP Insurance Providers Payer Name Policy Number Subscriber Name Relationship [facility] [id number] Marisa Zaragoza 18 Self / Same As Patient Advance Directives Directive Response Recorded Date/Time Advance Directives No 10/27/16 9:18am Health Care Power of Contract Negotiator No 10/27/16 9:18am Organ Donor Yes 10/27/16 9:18am Resuscitation Status Full Code 10/27/16 9:18am Problems Active Problems Medical Problem Onset Date Status 26 weeks gestation of Unknown Acute Bronchitis Unknown Acute Chest pain Unknown Acute Dyspnea Unknown Acute Hemorrhagic ovarian cyst Unknown Acute Palpitations Unknown Acute Pneumonia Unknown Acute Right lower quadrant abdominal pain Unknown Acute Right lower quadrant abdominal pain Unknown Acute Threatened miscarriage in early Unknown Acute Medications Current Home Medications Medication Dose Units Route Directions Days/Qty Instructions Start Date Aic245/Iron Fumarate/Fa/Dss 1 Each 1 Each Oral 10/19/16 Past Home Medications Medication Directions Ordered Status Nitrofurantoin Macrocrystals 100 Mg Capsule, 1 Each Oral Twice A Day Discontinued Cephalexin Monohydrate (Keflex) 500 Mg Capsule, 1 Each Oral Four Times Daily 12/14/13 Discontinued Phenazopyridine Hcl 200 Mg Tablet, 1 Each Oral Three Times A Day as needed for Pain 12/14/13 Discontinued Albuterol 17 Gm Inh, 2 [place] Inhalation Every 4HRS as needed for Shortness Of Breath 01/19/14 Discontinued Doxycycline Hyclate (Vibramycin) 100 Mg Capsule, 1 Each Oral Twice A Day Discontinued Levofloxacin 500 Mg Tab, 1 Each Oral Daily 08/06/14 Discontinued Prednisone 20 Mg Tablet, 40 Mg Oral Daily 08/06/14 Discontinued Hydrocodone Bit/Acetaminophen 1 Each Tablet, 1 Ea Oral Every 6 Hours as needed for Mild Pain 11/03/14 Discontinued Nitrofurantoin Monohyd/M-Cryst 100 Mg Capsule, 1 Tab Oral Twice A Day Discontinued Oxycodone Hcl/Acetaminophen 1 Each Tablet, 1-2 Tab Oral Every 4HRS as needed for Pain 01/22/16 Discontinued Social History Social History Problem Response Recorded Date/Time Alcohol Use Denies Use 02/19/2016 11:35am Recreational Drug Use No 02/19/2016 11:35am Recent Foreign Travel No 01/20/2014 1:54am Recent Infectious Disease Exposure No 01/20/2014 1:54am HIV/AIDS No 10/19/2016 8:34pm Smoking Status Former Smoker 10/27/2016 9:19am Type Used Cigarettes 10/20/2016 5:44am Recent Hopitalizations No 10/19/2016 8:34pm Query Response Start Date Stop Date Smoking Status Former Smoker Hospital Discharge Instructions No hospital discharge instructions. Plan of Care Discharge Date 10/27/16 6:05pm Instructions/Education Provided OB OUTPATIENT DISCHARGE Prescriptions See Medication Section Functional Status No functional status results. Allergies, Adverse Reactions, Alerts No known allergies. Immunizations No immunization records. Vital Signs Acute Vital Signs Vital Response Date/Time Temperature (Fahrenheit) 98.4 degrees F (97.6 - 99.5) 10/20/2016 8:15am Temperature (Calculated Celsius) 36.28419 degrees C (36.4 - 37.5) 10/20/2016 8:15am Temperature Source Tympanic 10/20/2016 8:15am Pulse Rate (adult) 83 bpm (60 - 90) 10/20/2016 8:15am Respiratory Rate 16 bpm (12 - 24) 10/20/2016 8:15am O2 Sat by Pulse Oximetry 98 % (88 - 100) 10/20/2016 8:15am Blood Pressure 112/63 mm Hg 10/20/2016 8:15am Blood Pressure Mean 79 mm Hg 10/20/2016 8:15am Pain Numeric Pain Scale 4 10/27/2016 11:48am Height (Feet) 5 feet 10/27/2016 9:23am Height (Inches) 5.00 inches 10/27/2016 9:23am Height (Calculated Centimeters) 165.532612 cm 10/27/2016 9:23am Weight (Pounds) 164 pounds 10/27/2016 9:23am Weight (Ounces) 6.0 oz 10/27/2016 9:23am Weight (Calculated Grams) 93199.25 gm 10/27/2016 9:23am Weight (Calculated Kilograms) 74.565636 kilograms 10/27/2016 9:23am Calculated BMI 27.4 10/27/2016 9:23am Capillary Refill Capillary Refill Less Than 3 Seconds 10/19/2016 8:34pm Results Pending Laboratory Results Test Name Collection Date/Time Procedures Procedure Status Date Provider(s) Tracing only of electrocardiogram Completed 10/19/16 KOMAL LEONARDO DO Tracing only of electrocardiogram Completed 10/19/16 EMRY FLOWER DO 48 hour Holter monitoring Completed 10/20/16 DIONE REYES MD 48 hour Holter monitoring Completed 10/20/16 DIONE REYES MD Color Doppler echocardiography Active 10/20/16 DIONE REYES MD Tracing only of electrocardiogram Completed 10/20/16 MERY FLOWER DO Limited echocardiography Active 10/20/16 MERY FLOWER DO Color Doppler echocardiography Active 10/20/16 DIONE REYES MD Encounters Encounter Location Arrival/Admit Date Discharge/Depart Date Attending Provider Departed Clinic [facility] 10/27/16 8:52am 10/27/16 6: 05pm MERY FLOWER DO Registered Recurring [facility] 10/20/16 12:39pm DIONE REYES MD Discharged Inpatient (obs) [facility] 10/19/16 10:02pm 10/20/16 9:24am MERY FLOWER DO
--- NOTE | 2016-11-08 14:50 | Diagnostic Imaging Report ---
OB ultrasound. INDICATION: Evaluate intracranial contents. There are no previous exams available for comparison. FINDINGS: Reportedly, the patient is approximately 28-29 weeks . There is a single live fetus is cephalic presentation. heart motion was noted and a rate of 161 bpm was recorded. The intracranial structures were visualized and appeared within normal limits. There is no sign of a mass or hydrocephalus. The configuration of the skull is also unremarkable. The placenta is posterior and there is no previa. The amniotic fluid volume is within normal limits at 14.1 (normal 8 to 22 cm). The cervix was identified and measures 6.2 cm in length. IMPRESSION: 1. There is a single live fetus in cephalic presentation. 2. The intracranial contents are unremarkable. 3. If previous studies are available, they would be helpful for comparison. Dictated by: Dictated on workstation # [id number]
== END ==
LOC: RAD 10:03
PROVIDERS: ATTEND Obstetrics & Gynecology
DX: Z34.82 Encounter for supervision of other normal pregnancy, second trimester (principal)
CPT/HCPCS: 76805

== ENCOUNTER 2017-01-12 12:04 | Outpatient (CLI) | payer BC ==
[~2017-01-12] VITALS: Ht 165.1 cm; Wt 80.0 kg
[2017-01-12 12:17] VITALS: BP 111/74
== END 2017-01-12 12:30 | disposition home or self-care (01) ==
LOC: PREOP 12:04
PROVIDERS: ATTEND Obstetrics & Gynecology
DX: Z01.818 Encounter for other preprocedural examination (principal); Z11.2 Encounter for screening for other bacterial diseases; O34.211 Maternal care for low transverse scar from previous cesarean delivery
CPT/HCPCS: 87081

== ENCOUNTER 2017-01-19 06:10 | Inpatient (IN) | payer BC ==
[2017-01-19] VITALS (7 sets, daily range): BP systolic 103–123; BP diastolic 64–84
[~2017-01-19] VITALS: Ht 165.1 cm; Wt 79.5 kg
[~2017-01-19 06:10] MED LIST changes: +CITRIC ACID/SOB CIT (BICITRA) 30 ML UDC ONE; +FAMOTIDINE 20MG/2ML IV (PEPCID) ONE; +LACTATED RINGERS 1,000 ML IV ONE; +METOCLOPRAMIDE INJ 10 MG/2 ML (REGLAN) ONE; +ceFAZolin 2 GM/50 ML NS 50 ML ONE
[2017-01-19] MEDS ORDERED: LACTATED RINGERS 1,000 ML IV PRN ×2 (06:13)
[2017-01-19] MEDS ORDERED: FAMOTIDINE 20MG/2ML IV (PEPCID) IV ONE (06:15)
[2017-01-19] MEDS ORDERED: CITRIC ACID/SOB CIT (BICITRA) 30 ML UDC PO ONE (06:15)
[2017-01-19] MEDS ORDERED: METOCLOPRAMIDE INJ 10 MG/2 ML (REGLAN) IV ONE (06:15)
[2017-01-19 06:40] LABS: BASOPHILS % (AUTO) 0 % (0-10); EOSINOPHILS # (AUTO) 0.1 10^3/uL (0.0-0.3); EOSINOPHILS % (AUTO) 1 % (0-10); LYMPHOCYTES # (AUTO) 2.6 X 10^3 (1.0-4.0); LYMPHOCYTES % (AUTO) 17 % (12-44); MEAN CORPUSCULAR HEMOGLOBIN 30 PG (25-34); MEAN CORPUSCULAR HGB CONC 34 G/DL (32-36); MEAN CORPUSCULAR VOLUME 90 FL (80-99); MEAN PLATELET VOLUME 11.1 FL (7.4-10.4); MONOCYTES # (AUTO) 1.3 X 10^3 (0.0-1.0); MONOCYTES % (AUTO) 8 % (0-12); NEUTROPHILS # (AUTO) 11.3 X 10^3 (1.8-7.8); NEUTROPHILS % (AUTO) 74 % (42-75); PLATELET COUNT 269 10^3/uL (130-400); RED BLOOD COUNT 4.14 10^6/uL (4.35-5.85); RED CELL DISTRIBUTION WIDTH 13.8 % (10.0-14.5); WHITE BLOOD COUNT 15.4 10^3/uL (4.3-11.0)
[2017-01-19] MEDS ORDERED: OXYTOCIN/NORMAL SALINE 1,000 ML IV ONE (06:51)
[2017-01-19] MEDS ORDERED: fentaNYL INJECTION 100 MCG/2 ML AMP ONE (06:51)
[2017-01-19] MEDS ORDERED: ONDANSETRON 4 MG/2 ML (SDV) Z0FRAN ONE (06:51)
--- NOTE | 2017-01-19 07:18 | History & Physical-OB ---
OB - Chief Complaint & HPI Date Date of Admission: Date of Admission: January 19, 2017 at 6:10 am Chief Complaint/History OB-Reason for Admission/Chief: Section Hx : 4 Hx Para: 2 Expected Date of Delivery: January 26, 2017 Gestational Age in Weeks: 39 Indication for : desires repeat Admission Nurse Assessment Rev: Yes History of Labs O pos Antibody neg Rubella non-immune HBsAg NR HIV NR HBsAg NR GC neg GBS neg Allergies and Home Medications Allergies Coded Allergies: No Known Drug Allergies (Unverified , 01/12/17) Home Medications Oyp358/Iron Fumarate/FA/Dss 1 Each Tablet, 1 EACH PO, (Reported) OB - History Hx of Present Care: Yes Ultrasounds: Normal mid trimester US Obstetrical Complications: None Medical Complications: None Delivery History Hx Blood Disorders: No Adverse Rxn to Tranfusion: No (N/A) Patient Past Medical History n/a Social History/Family History HIV/AIDS: No Recent Infectious Disease Expo: No Sexually Transmitted Disease: No Alcohol Use: Denies Use Recreational Drug Use: No 2nd Hand Smoke Exposure: No Immunizations Date of Influenza Vaccine: Jul 20, 2016 OB - Admission Exam Physical Exam Vitals: Vital Signs 01/19/17 06:15 Temp 97.3 Pulse 116 Resp 18 B/P (MAP) 123/72 HEENT: NCAT Heart: Rhythm Normal Lungs: Clear Abdomen: Gravid Extremities: Normal Reflexes: Normal Membranes: Intact Heart Rate: 130's Accelerations: Accelerations Present Decelerations: No Decelerations Short Term Variability: Present Fci Variability: Average (6-25) Contractions on Admission: >10 Minutes Apart Intensity: Mild Labs Laboratory Tests Test 01/19/17 06:22 Range/Units White Blood Count 15.4 H 4.3-11.0 10^3/uL Red Blood Count 4.14 L 4.35-5.85 10^6/uL Hemoglobin 12.6 11.5-16.0 G/DL Hematocrit 37 35-52 % Mean Corpuscular Volume 90 80-99 FL Mean Corpuscular Hemoglobin 30 25-34 PG Mean Corpuscular Hemoglobin Concent 34 32-36 G/DL Red Cell Distribution Width 13.8 10.0-14.5 % Platelet Count 269 130-400 10^3/uL Mean Platelet Volume 11.1 H 7.4-10.4 FL Neutrophils (%) (Auto) 74 42-75 % Lymphocytes (%) (Auto) 17 12-44 % Monocytes (%) (Auto) 8 0-12 % Eosinophils (%) (Auto) 1 0-10 % Basophils (%) (Auto) 0 0-10 % Neutrophils # (Auto) 11.3 H 1.8-7.8 X 10^3 Lymphocytes # (Auto) 2.6 1.0-4.0 X 10^3 Monocytes # (Auto) 1.3 H 0.0-1.0 X 10^3 Eosinophils # (Auto) 0.1 0.0-0.3 10^3/uL Basophils # (Auto) 0.0 0.0-0.1 10^3/uL OB - Assessment/Plan/Diagnosis Assessment Assessment: section Plan Plan: Section Discharge Diagnosis Diagnosis: 27yo @ 39 weeks Previous section MERY FLOWER DO January 19, 2017 7:18 am
[2017-01-19] MEDS ORDERED: KETOROLAC 30 MG/ML VIAL ONE (07:50)
[2017-01-19] MEDS ORDERED: ceFAZolin 2 GM/50 ML NS 50 ML IV ONE (08:00)
[2017-01-19] MEDS ORDERED: OXYTOCIN/NORMAL SALINE 500 ML IV SCH (08:03)
[2017-01-19] MEDS: KETOROLAC 30 MG/ML VIAL IVP SCH ×3 (08:03→20:55)
--- NOTE | 2017-01-19 08:06 | Progress Note-Post Operative ---
Post-Operative Progess Note Surgeon (s)/Manager Strategic Alliances (s) Surgeon MERY FLOWER DO Manager [employer]iances: Peggy Erwin Pre-Operative Diagnosis Previous , 39 week IUP Post-Operative Diagnosis same Procedure & Operative Findings Date of Procedure 01/19/17 Procedure Performed/Findings RLTCS -live male Anesthesia Type spinal Estimated Blood Loss Estimated blood loss (mL): 500 Specimens/Packing Specimens Removed placenta Packing: none MERY FLOWER DO January 19, 2017 08:06
[2017-01-19] MEDS ORDERED: HYDR-3812 PO (08:08)
[2017-01-19] MEDS ORDERED: DOCU100C37 PO (08:08)
[2017-01-19] MEDS ORDERED: IBUP-1773 PO (08:08)
--- NOTE | 2017-01-19 08:09 | Discharge Inst-Women's Service ---
Discharge Inst-Women's Serv Depart Medication/Instructions New, Converted or Re-Newed RX: RX on Chart Consults/Follow Up Additional Follow Up: Yes Orders/Referrals Dr. Reagan in 7-10 days and 6 weeks Activity Activity: Activity as Tolerated Driving Instructions: No Driving for 1 Week NO SMOKING: NO SMOKING Nothing Inside Vagina: No Douching, No Hester, No Tampons Diet Discharge Diet: No Restrictions Symptoms to Report to : Bleeding Excessive, Pain Increased, Fever Over 101 Degrees F, Vaginal Bleeding Increase, Questions/Concerns For Any Problems or Questions: Contact Your Physician Skin/Wound Care Infection Signs and Symptoms: Increased Redness, Foul Odor of Wound, Increased Drainage, Skin Itchy or Has a Rash, Increased Swelling, Temperature Above 101 F Operative Area Clean and Dry: Keep Incision Clean/Dry Stitches/Rodrigue/Dermabond: Dermabond, Care of Stitches Bathing Instructions: MERY Steel DO January 19, 2017 08:09
[2017-01-19] MEDS ORDERED: TETANUS,DIPTH,PERTUSS P/F (BOOSTRIX) 0.5 ML VIAL IM SCH (08:15)
[2017-01-19] MEDS ORDERED: ONDANSETRON 4 MG/2 ML (SDV) Z0FRAN IVP PRN (08:15)
[2017-01-19] MEDS ORDERED: KETOROLAC 30 MG/ML VIAL IVP ONE (08:15)
[2017-01-19] MEDS ORDERED: MEASLES,MUMPS,RUBELLA 1 EA INJ SC SCH (08:15)
[2017-01-19] MEDS: HYDROmorphone (DILAUDID) 2 MG/ML VIAL IVP PRN ×2 (08:34→12:06)
[2017-01-19] MEDS: DOCUSATE SODIUM 100 MG (COLACE) CAP PO SCH ×2 (09:41→20:55)
[2017-01-19] MEDS: HYDROcodone/APAP 5 MG/325 MG (LORTAB) TAB PO PRN ×3 (09:42→19:29)
[2017-01-19] MEDS ORDERED: BENZONATATE 100 MG (TESSALON) CAPSULE PO ONE (10:27)
[2017-01-19] MEDS: BENZONATATE 100 MG (TESSALON) CAPSULE PO SCH ×3 (10:34→20:55)
--- NOTE | 2017-01-19 13:03 | OPERATIVE REPORT ---
DATE OF SERVICE: PREOPERATIVE DIAGNOSES: 1. A 27-year-old G4, P2 at 39 weeks gestation. 2. Previous section. POSTOPERATIVE DIAGNOSES: 1. A 27-year-old G4, P2 at 39 weeks gestation. 2. Previous section. PROCEDURE: Repeat low transverse section. SURGEON: Dr. Art Flower CNC WOOD LATHE OPERATOR: DBEI Salinas who was necessary for completion of the procedure. ANESTHESIA: Spinal. ESTIMATED BLOOD LOSS: 500 cc URINE OUTPUT: 200 cc, clear at the end of the procedure. FLUIDS: 1800 mL Lactated Ringer solution. FINDINGS: A live male weighing 6 pounds and 11 ounces, Apgars of 8 and 9. Grossly normal-appearing uterus, bilateral fallopian tubes and ovaries. SPECIMENS SENT: None. INDICATIONS FOR PROCEDURE: This 27-year-old female is a patient who sought care in my office. She was counseled about , but wished to proceed with a repeat . Risks of the procedure discussed with the patient in detail in the office during her course. It was again reviewed in the preoperative area where the consent was obtained with her family present. Once the consent was obtained and all questions were answered, patient was taken to the operating room. OPERATIVE REPORT IN DETAIL: Once in the operating room, spinal anesthesia was found to be adequate. She was placed in the supine position with a leftward tilt, prepped and draped in normal sterile fashion. A timeout is performed and anesthesia is tested. I then proceed with making a Pfannenstiel skin incision to the previously existing scar using a knife and carried down to the underlying fascia using Bovie cautery. The fascial incision is extended laterally using Bovie cautery. The superior aspect of the fascial incision was then grasped with Rekha clamps, tented upward and dissected off the underlying rectus muscles. Inferior aspect of the fascial incision was then grasped with Rekha clamps, tented upward and dissected off the underlying rectus muscles. The rectus muscles were then dissected down the midline using Hsu scissors, which exposed the peritoneum and allows me to enter bluntly. I then extend the peritoneal incision using blunt traction, placing Flaco ring retractor in the peritoneal incision which offers excellent lateral sidewall retraction. I then identified the lower uterine segment which was found to be thinned out and make an incision into the vesicouterine peritoneum and bluntly dissected a bladder flap off of the lower uterine segment. I then proceed with my myotomy until membranes are visualized. At which point, I extend the uterine incision laterally and superiorly using bandage scissors. I then performed amniotomy using an Allis clamp. Clear fluid was noted. The infant is found in vertex presentation. With gentle fundal pressure, the infant's head is elevated and delivered through the incision and then the nares and oropharynx are then bulb suctioned. The anterior and posterior shoulders are delivered. The is then brought out into the operative field where the cord was doubly clamped and cut. Infant was handed off to the awaiting nurses in attendance. Cord blood was collected and 3-vessel cord with intact placenta is delivered spontaneously thereafter. IV Pitocin is initiated to facilitate uterine contraction. Uterine fundus became firmer with bimanual massage. The uterus was then exteriorized and cleared of all endometrial clots and debris. I then closed the uterine incision using 0 Vicryl suture in running locking fashion. A 2nd layer of imbricating 0 Monocryl was placed. Excellent hemostasis was noted after doing so. I then placed the uterus back within the pelvis and copiously irrigated the pelvis using normal saline. There was no active bleeding noted from any of my dissection planes. I placed Interceed antiadhesive over my lower transverse incision and proceeded with closing the peritoneum using 3-0 Vicryl in running fashion. The rectus muscle was reapproximated using 3-0 Vicryl sutures in interrupted fashion. The fascia was reapproximated using 0 Vicryl fashion. The subcutaneous tissues reapproximated using 3-0 plain in an interrupted fashion and the skin was reapproximated using 4-0 Monocryl in a running subcuticular. Dermabond was applied to the incision. A sterile dressing is adhesive white tape. The patient tolerated the procedure well and was sent to the recovery area in stable condition. Lap and sponge counts correct at the end of the procedure. Instrument counts were correct as well. One gram of Ancef was given preoperatively for infection prophylaxis. Job ID: [id number] DocumentID: [id number] Dictated Date: 01/19/2017 08:12:35 Spindraw Operator Date: 01/19/2017 13:02:53 Dictated By: ART FLOWER DO
[2017-01-19] MEDS: CATHETER FLUSH 10 ML SYR IV SCH ×2 (14:45→20:55)
[2017-01-20 01:00] VITALS: BP 105/67
[2017-01-20] MEDS: HYDROcodone/APAP 5 MG/325 MG (LORTAB) TAB PO PRN ×3 (01:00→15:12)
[2017-01-20] MEDS ORDERED: IBUPROFEN 600 MG (MOTRIN) TAB PO ONE (03:32)
[2017-01-20] MEDS: KETOROLAC 30 MG/ML VIAL IVP SCH (03:35)
[2017-01-20] MEDS: IBUPROFEN 600 MG (MOTRIN) TAB PO SCH ×4 (03:42→23:51)
[2017-01-20 06:16] LABS: BASOPHILS % (AUTO) 0 % (0-10); EOSINOPHILS # (AUTO) 0.1 10^3/uL (0.0-0.3); EOSINOPHILS % (AUTO) 1 % (0-10); LYMPHOCYTES # (AUTO) 2.7 X 10^3 (1.0-4.0); LYMPHOCYTES % (AUTO) 23 % (12-44); MEAN CORPUSCULAR HEMOGLOBIN 30 PG (25-34); MEAN CORPUSCULAR HGB CONC 33 G/DL (32-36); MEAN CORPUSCULAR VOLUME 91 FL (80-99); MONOCYTES % (AUTO) 9 % (0-12); NEUTROPHILS # (AUTO) 7.7 X 10^3 (1.8-7.8); NEUTROPHILS % (AUTO) 67 % (42-75); PLATELET COUNT 242 10^3/uL (130-400); RED BLOOD COUNT 3.77 10^6/uL (4.35-5.85); RED CELL DISTRIBUTION WIDTH 13.9 % (10.0-14.5); WHITE BLOOD COUNT 11.6 10^3/uL (4.3-11.0)
[2017-01-20 06:22] VITALS: BP 104/58
[2017-01-20] MEDS: CATHETER FLUSH 10 ML SYR IV SCH (06:25)
[2017-01-20] MEDS: DOCUSATE SODIUM 100 MG (COLACE) CAP PO SCH ×2 (09:10→23:50)
[2017-01-20] MEDS: BENZONATATE 100 MG (TESSALON) CAPSULE PO SCH ×3 (09:10→23:50)
[2017-01-20 12:15] VITALS: BP 100/72
--- NOTE | 2017-01-20 14:02 | Anesthesia-Regional Post-Op ---
Regional Patient Condition Mental Status: Alert, Oriented x3 Circulation: Same as Pre-Op Headache: Absent Sensation: Full Recovery Motor Block: Absent Post Op Complications Complications None Follow Up Care/Instructions Patient Instructions None needed. Anesthesia/Patient Condition Patient is doing well, no complaints, stable vital signs, no apparent adverse anesthesia problems. No complications reported per nursing. SHERIN FELDER CRNA January 20, 2017 14:02
--- NOTE | 2017-01-20 17:09 | Progress Note-Standard ---
Standard Progress Note Progress Notes/Assess & Plan Progress/Assessment & Plan Patient doing well today, requesting to go home. Pain well controlled. Lochia light. Ambulating and voiding freely. Vital Sign - Last 24 Hours 01/19/17 01/19/17 01/20/17 01/20/17 18:05 21:00 01:00 06:22 Temp 97.9 97.6 97.4 97.5 Pulse 73 79 72 79 Resp 18 16 16 16 B/P (MAP) 103/64 107/66 105/67 104/58 Pulse Ox 97 97 96 96 01/20/17 12:15 Temp 97.5 Pulse 73 Resp 18 B/P (MAP) 100/72 Pulse Ox 97 Intake and Output 01/19/17 01/19/17 01/20/17 15:00 23:00 07:00 Intake Total 2050 ml 1382 ml 1300 ml Output Total 200 ml 1750 ml 1800 ml Balance 1850 ml -368 ml -500 ml Laboratory Tests Test 01/20/17 05:58 Range/Units White Blood Count 11.6 H 4.3-11.0 10^3/uL Red Blood Count 3.77 L 4.35-5.85 10^6/uL Hemoglobin 11.2 L 11.5-16.0 G/DL Hematocrit 34 L 35-52 % Mean Corpuscular Volume 91 80-99 FL Mean Corpuscular Hemoglobin 30 25-34 PG Mean Corpuscular Hemoglobin Concent 33 32-36 G/DL Red Cell Distribution Width 13.9 10.0-14.5 % Platelet Count 242 130-400 10^3/uL Mean Platelet Volume 11.0 H 7.4-10.4 FL Neutrophils (%) (Auto) 67 42-75 % Lymphocytes (%) (Auto) 23 12-44 % Monocytes (%) (Auto) 9 0-12 % Eosinophils (%) (Auto) 1 0-10 % Basophils (%) (Auto) 0 0-10 % Neutrophils # (Auto) 7.7 1.8-7.8 X 10^3 Lymphocytes # (Auto) 2.7 1.0-4.0 X 10^3 Monocytes # (Auto) 1.0 0.0-1.0 X 10^3 Eosinophils # (Auto) 0.1 0.0-0.3 10^3/uL Basophils # (Auto) 0.0 0.0-0.1 10^3/uL Incision: c/d/i Diagnosis: POD 1 PLTCS P: Going to discharge tomorrow morning, but keeping a second night due to nature of surgery and laparotomy involved with procedure. PO/PP precautions reviewed. MERY FLOWER DO January 20, 2017 5:09 pm
[2017-01-20 18:15] VITALS: BP 108/73
[2017-01-21] VITALS: BP 104/64
[2017-01-21] MEDS: IBUPROFEN 600 MG (MOTRIN) TAB PO SCH (06:23)
[2017-01-21 06:30] VITALS: BP 103/66
[2017-01-21 09:17] VITALS: BP 125/68
[2017-01-21] MEDS: BENZONATATE 100 MG (TESSALON) CAPSULE PO SCH (09:19)
[2017-01-21] MEDS: DOCUSATE SODIUM 100 MG (COLACE) CAP PO SCH (09:19)
[2017-01-21] MEDS: HYDROcodone/APAP 5 MG/325 MG (LORTAB) TAB PO PRN (09:23)
[2017-01-21 13:45] VITALS: BP 125/68
--- NOTE | 2017-01-24 13:05 | Physician Query-Final Dx ---
Final Diagnosis Give Final Diagnosis Please give Final Diagnosis MER PANDEY January 24, 2017 13:05
== END 2017-01-21 13:45 | disposition home or self-care (01) | DRG 766 ==
LOC: LDRP 06:10 → WS 09:10
PROVIDERS: ADMIT Obstetrics & Gynecology; ATTEND Obstetrics & Gynecology
PROC: 10D00Z1 Extraction of Products of Conception, Low, Open Approach (ICD-10-PCS; principal; 2017-01-19 07:18)
DX: O34.211 Maternal care for low transverse scar from previous cesarean delivery (principal); Z3A.39 39 weeks gestation of pregnancy; Z37.0 Single live birth; Z23 Encounter for immunization
CPT/HCPCS: 36415; 85025; 86850; 86900; 86901; 90707; 94664

== ENCOUNTER → 2017-11-09 | Outpatient (CLI) | payer BC ==
[~2017-11-09] MED LIST changes: +ACHD5005 PO; -CITRIC ACID/SOB CIT (BICITRA) 30 ML UDC ONE; +DOCU100C37 PO; -FAMOTIDINE 20MG/2ML IV (PEPCID) ONE; +IBUP-1773 PO; -LACTATED RINGERS 1,000 ML IV ONE; -METOCLOPRAMIDE INJ 10 MG/2 ML (REGLAN) ONE; -ceFAZolin 2 GM/50 ML NS 50 ML ONE
--- NOTE | 2017-11-09 12:44 | Diagnostic Imaging Report ---
INDICATION: Bleeding and IUD. EXAMINATION: Transabdominal and transvaginal pelvic sonography was performed. FINDINGS: The uterus measures 8.0 x 5.1 x 3.8 cm. The endometrium is approximately 6 mm in thickness. There appears to be an IUD appropriately centered within the endometrial canal. No myometrial mass is identified. The right ovary measures 4.1 x 2.9 x 2.7 cm. There appears to be septated cyst within the right ovary measuring 2.3 x 2.6 x 2.4 cm. There is blood flow to the right ovary. The left ovary is obscured by bowel gas. No free fluid is seen. IMPRESSION: 1. IUD appears to be appropriately centered within the endometrial canal. 2. Septated right ovarian cyst. Followup in 4-6 weeks could be performed to confirm clearing. Dictated by: Dictated on workstation # [id number]
== END ==
LOC: RAD 11:10
PROVIDERS: ATTEND Obstetrics & Gynecology
DX: Z30.431 Encounter for routine checking of intrauterine contraceptive device (principal); N83.291 Other ovarian cyst, right side; N93.8 Other specified abnormal uterine and vaginal bleeding
CPT/HCPCS: 76830; 76856

== ENCOUNTER 2018-04-18 19:19 | Emergency (ER) | payer BC, OTHER ==
[~2018-04-18] VITALS: Ht 165.1 cm; Wt 65.8 kg
--- OUTSIDE RECORDS SUMMARY | 2018-04-18 19:26 | XMS REPORT | Continuity of Care Document ---
Author Author [facility] Organization [facility] Address Unknown Phone Unavailable Allergies Active Description Code Type Severity Reaction Onset Reported/Identified Relationship to Patient Clinical Status Yes No Known Drug Allergies [id number] Drug Allergy Unknown N/A 01/12/2017 Medications There is no data. Problems Date Dx Coded Attending Type Code Diagnosis Diagnosed By 04/26/2011 Ot 599.0 URIN TRACT INFECTION NOS 04/26/2011 Ot 789.09 ABDOMINAL PAIN, OTHER SPECIFIED SITE 12/14/2013 MONTSE HERRERA MD Ot 599.0 URIN TRACT INFECTION NOS 12/14/2013 MONTSE HERRERA MD Ot 789.09 ABDOMINAL PAIN, OTHER SPECIFIED SITE 01/19/2014 SHARI CHAHAL MD Ot 519.11 ACUTE BRONCHOSPASM 01/19/2014 SHARI CHAHAL MD Ot 786.09 RESPIRATORY ABNORM NEC 01/20/2014 MONTSE HERRERA MD Ot 787.01 NAUSEA WITH VOMITING 01/20/2014 MONTSE HERRERA MD Ot 787.91 DIARRHEA 07/26/2014 SHARI CHAHAL MD Ot 490 BRONCHITIS NOS 07/26/2014 SHARI CHAHAL MD Ot 780.60 FEVER, UNSPECIFIED 08/06/2014 PA COOPER MD Ot 486 PNEUMONIA, ORGANISM NOS 08/06/2014 PA COOPER MD Ot 786.2 COUGH 11/03/2014 Ot 625.8 FEM GENITAL SYMPTOMS NEC 11/03/2014 Ot 789.00 ABDOMINAL PAIN, UNSPECIFIED SITE 01/17/2016 SINTIA TIRADO Ot O20.0 THREATENED 01/17/2016 SINTIA TIRADO Ot Z3A.01 LESS THAN 8 WEEKS GESTATION OF 01/18/2016 SINTIA TIRADO Ot O20.0 THREATENED 01/18/2016 SINTIA TIRADO Ot Z3A.01 LESS THAN 8 WEEKS GESTATION OF 01/21/2016 RERE PAVON MD, Ot D64.9 ANEMIA, UNSPECIFIED 01/21/2016 RERE PAVON MD, Ot O02.1 MISSED 01/21/2016 RERE PAVON MD, Ot Z01.818 ENCOUNTER FOR OTHER PREPROCEDURAL EXAMIN 01/22/2016 RERE PAVON MD, Ot O02.1 MISSED 01/23/2016 SINTIA TIRADO Ot O20.0 THREATENED 01/23/2016 SINTIA TIRADO Ot Z3A.01 LESS THAN 8 WEEKS GESTATION OF 01/25/2016 RERE PAVON MD, Ot O02.1 MISSED 02/18/2016 RERE PAVON MD, Ot 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, UNSPECIFIED 02/18/2016 RERE PAVON MD, Ot Z01.818 ENCOUNTER FOR OTHER PREPROCEDURAL EXAMIN 02/19/2016 RERE PAVON MD, Ot 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, UNSPECIFIED 02/19/2016 RERE PAVON MD, Ot Z01.818 ENCOUNTER FOR OTHER PREPROCEDURAL EXAMIN 02/19/2016 RERE PAVON MD, Ot 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 02/24/2016 RERE PAVON MD, Ot 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 03/31/2016 Ot 599.0 URIN TRACT INFECTION NOS 03/31/2016 Ot 789.09 ABDOMINAL PAIN, OTHER SPECIFIED SITE 10/20/2016 MERY FLOWER DO Ot O99.412 DISEASES OF THE CIRC SYS COMP , 10/20/2016 MERY FLOWER DO Ot R00.2 PALPITATIONS 10/20/2016 MERY FLOWER DO Ot R06.02 SHORTNESS OF BREATH 10/20/2016 MERY FLOWER DO Ot Z3A.26 26 WEEKS GESTATION OF 10/20/2016 MERY FLOWER DO Ot Z87.891 PERSONAL HISTORY OF NICOTINE DEPENDENCE 10/27/2016 MERY FLOWER DO Ot N13.30 UNSPECIFIED HYDRONEPHROSIS 10/27/2016 MERY FLOWER DO Ot N20.0 CALCULUS OF KIDNEY 10/27/2016 MERY FLOWER DO Ot O99.89 OTH DISEASES AND CONDITIONS COMPL PREG/C 10/27/2016 MERY FLOWER DO Ot Z3A.28 28 WEEKS GESTATION OF 10/28/2016 MERY FLOWER DO Ot N13.30 UNSPECIFIED HYDRONEPHROSIS 10/28/2016 MERY FLOWER DO Ot N20.0 CALCULUS OF KIDNEY 10/28/2016 MERY FLOWER DO Ot O99.89 OTH DISEASES AND CONDITIONS COMPL PREG/C 10/28/2016 MERY FLOWER DO Ot Z3A.28 28 WEEKS GESTATION OF 11/08/2016 DIONE REYES MD Ot O99.89 OTH DISEASES AND CONDITIONS COMPL PREG/C 11/08/2016 DIONE REYES MD Ot R00.2 PALPITATIONS 11/08/2016 DIONE REYES MD Ot Z82.49 FAMILY HX OF ISCHEM HEART DIS AND OTH DI 11/08/2016 DIONE REYES MD Ot O99.89 OTH DISEASES AND CONDITIONS COMPL PREG/C 11/08/2016 DIONE REYES MD Ot R00.2 PALPITATIONS 11/08/2016 DIONE REYES MD Ot Z82.49 FAMILY HX OF ISCHEM HEART DIS AND OTH DI 11/08/2016 DIONE REYES MD Ot O99.89 OTH DISEASES AND CONDITIONS COMPL PREG/C 11/08/2016 DIONE REYES MD Ot R00.2 PALPITATIONS 11/08/2016 DIONE REYES MD Ot Z82.49 FAMILY HX OF ISCHEM HEART DIS AND OTH DI 11/09/2016 MERY FLOWER DO Ot Z34.82 ENCOUNTER FOR SUPRVSN OF NORMAL PREGNANC 11/10/2016 MERY FLOWER DO Ot Z34.82 ENCOUNTER FOR SUPRVSN OF NORMAL PREGNANC 11/10/2016 DIONE REYES MD Ot O99.89 OTH DISEASES AND CONDITIONS COMPL PREG/C 11/10/2016 DIONE REYES MD Ot R00.2 PALPITATIONS 11/10/2016 DIONE REYES MD Ot Z82.49 FAMILY HX OF ISCHEM HEART DIS AND OTH DI 11/10/2016 MERY FLOWER DO Ot Z34.82 ENCOUNTER FOR SUPRVSN OF NORMAL PREGNANC 11/17/2016 DIONE REYES MD Ot O99.89 OTH DISEASES AND CONDITIONS COMPL PREG/C 11/17/2016 DIONE REYES MD Ot R00.2 PALPITATIONS 11/17/2016 DIONE REYES MD Ot Z82.49 FAMILY HX OF ISCHEM HEART DIS AND OTH DI 11/23/2016 MERY FLOWER DO Ot Z34.82 ENCOUNTER FOR SUPRVSN OF NORMAL PREGNANC 01/12/2017 DIONE REYES MD Ot O99.89 OTH DISEASES AND CONDITIONS COMPL PREG/C 01/12/2017 DIONE REYES MD Ot R00.2 PALPITATIONS 01/12/2017 DOINE REYES MD Ot Z82.49 FAMILY HX OF ISCHEM HEART DIS AND OTH DI 01/12/2017 MERY FLOWER DO Ot Z34.82 ENCOUNTER FOR SUPRVSN OF NORMAL PREGNANC 01/12/2017 MERY FLOWER DO Ot O34.211 MATERN CARE FOR LOW TRANSVERSE SCAR FROM 01/12/2017 MERY FLOWER DO Ot Z01.818 ENCOUNTER FOR OTHER PREPROCEDURAL EXAMIN 01/12/2017 MERY FLOWER DO Ot Z11.2 ENCOUNTER FOR SCREENING FOR OTHER BACTER 01/17/2017 MERY FLOWER DO Ot O34.211 MATERN CARE FOR LOW TRANSVERSE SCAR FROM 01/17/2017 MERY FLOWER DO Ot Z01.818 ENCOUNTER FOR OTHER PREPROCEDURAL EXAMIN 01/17/2017 MERY FLOWER DO Ot Z11.2 ENCOUNTER FOR SCREENING FOR OTHER BACTER 01/18/2017 DIONE REYES MD Ot O99.89 OTH DISEASES AND CONDITIONS COMPL PREG/C 01/18/2017 IDONE REYES MD Ot R00.2 PALPITATIONS 01/18/2017 DIONE REYES MD Ot Z82.49 FAMILY HX OF ISCHEM HEART DIS AND OTH DI 01/19/2017 MERY FLOWER DO Ot Z34.82 ENCOUNTER FOR SUPRVSN OF NORMAL PREGNANC 01/19/2017 DIONE REYES MD Ot O99.89 OTH DISEASES AND CONDITIONS COMPL PREG/C 01/19/2017 DIONE REYES MD Ot R00.2 PALPITATIONS 01/19/2017 DIONE REYES MD Ot Z82.49 FAMILY HX OF ISCHEM HEART DIS AND OTH DI 01/21/2017 MERY FLOWER DO Ot O34.211 MATERN CARE FOR LOW TRANSVERSE SCAR FROM 01/21/2017 MERY FLOWER DO Ot Z23 ENCOUNTER FOR IMMUNIZATION 01/21/2017 MERY FLOWER DO Ot Z37.0 SINGLE LIVE 01/21/2017 MERY FLOWER DO Ot Z3A.39 39 WEEKS GESTATION OF 04/06/2017 MERY FLOWER DO Ot Z34.82 ENCOUNTER FOR SUPRVSN OF NORMAL PREGNANC 04/06/2017 DIONE REYES MD Ot O99.89 OTH DISEASES AND CONDITIONS COMPL PREG/C 04/06/2017 DIONE REYES MD Ot R00.2 PALPITATIONS 04/06/2017 DIONE REYES MD Ot Z82.49 FAMILY HX OF ISCHEM HEART DIS AND OTH DI 07/03/2017 MERY FLOWER DO Ot Z34.82 ENCOUNTER FOR SUPRVSN OF NORMAL PREGNANC 07/03/2017 DIONE REYES MD Ot O99.89 OTH DISEASES AND CONDITIONS COMPL PREG/C 07/03/2017 DIONE REYES MD Ot R00.2 PALPITATIONS 07/03/2017 DIONE REYES MD Ot Z82.49 FAMILY HX OF ISCHEM HEART DIS AND OTH DI 11/07/2017 MERY FLOWER DO Ot Z34.82 ENCOUNTER FOR SUPRVSN OF NORMAL PREGNANC 11/07/2017 DIONE REYES MD Ot O99.89 OTH DISEASES AND CONDITIONS COMPL PREG/C 11/07/2017 DIONE REYES MD Ot R00.2 PALPITATIONS 11/07/2017 DIONE REYES MD Ot Z82.49 FAMILY HX OF ISCHEM HEART DIS AND OTH DI 11/07/2017 MERY FLOWER DO Ot Z34.82 ENCOUNTER FOR SUPRVSN OF NORMAL PREGNANC 11/07/2017 DIONE REYES MD Ot O99.89 OTH DISEASES AND CONDITIONS COMPL PREG/C 11/07/2017 DIONE REYES MD Ot R00.2 PALPITATIONS 11/07/2017 DIONE REYES MD Ot Z82.49 FAMILY HX OF ISCHEM HEART DIS AND OTH DI 11/10/2017 MERY FLOWER DO Ot N83.291 OTHER OVARIAN CYST, RIGHT SIDE 11/10/2017 MERY FLOWER DO Ot N93.8 OTHER SPECIFIED ABNORMAL UTERINE AND VAG 11/10/2017 MERY FLOWER DO Ot Z30.431 ENCOUNTER FOR ROUTINE CHECKING OF INTRAU 11/22/2017 MERY FLOWER DO Ot N83.291 OTHER OVARIAN CYST, RIGHT SIDE 11/22/2017 MERY FLOWER DO Ot N93.8 OTHER SPECIFIED ABNORMAL UTERINE AND VAG 11/22/2017 MERY FLOWER DO Ot Z30.431 ENCOUNTER FOR ROUTINE CHECKING OF INTRAU Procedures Code Description Performed By Performed On [id number] EXTRACTION OF POC, LOW CERVICAL, OPEN AP 01/19/2017 Results Test Result Range Complete blood count (CBC) with automated white blood cell (WBC) differential - 10/19/16 20:45 Blood leukocytes automated count (number/volume) 17.5 10*3/uL 4.3-11.0 Blood erythrocytes automated count (number/volume) 4.01 10*6/uL 4.35-5.85 Venous blood hemoglobin measurement (mass/volume) 12.6 g/dL 11.5-16.0 Blood hematocrit (volume fraction) 36 % 35-52 Automated erythrocyte mean corpuscular volume 90 [foz_us] 80-99 Automated erythrocyte mean corpuscular hemoglobin (mass per erythrocyte) 31 pg 25-34 Automated erythrocyte mean corpuscular hemoglobin concentration measurement ( mass/volume) 35 g/dL 32-36 Automated erythrocyte distribution width ratio 13.6 % 10.0-14.5 Automated blood platelet count (count/volume) 303 10*3/uL 130-400 Automated blood platelet mean volume measurement 10.4 [foz_us] 7.4-10.4 Automated blood neutrophils/100 leukocytes 77 % 42-75 Automated blood lymphocytes/100 leukocytes 15 % 12-44 Blood monocytes/100 leukocytes 8 % 0-12 Automated blood eosinophils/100 leukocytes 1 % 0-10 Automated blood basophils/100 leukocytes 0 % 0-10 Blood neutrophils automated count (number/volume) 13.4 10*3 1.8-7.8 Blood lymphocytes automated count (number/volume) 2.6 10*3 1.0-4.0 Blood monocytes automated count (number/volume) 1.3 10*3 0.0-1.0 Automated eosinophil count 0.2 10*3/uL 0.0-0.3 Automated blood basophil count (count/volume) 0.0 10*3/uL 0.0-0.1 Blood manual differential performed detection - 10/19/16 20:45 Blood monocytes/100 leukocytes 5 % NRG Manual blood segmented neutrophils/100 leukocytes 71 % NRG Blood band neutrophils/100 leukocytes 2 % NRG Manual blood lymphocytes/100 leukocytes 19 % NRG Manual eosinophils/100 leukocytes in nose 2 % NRG Manual blood basophils/100 leukocytes 1 % NRG Blood erythrocyte morphology finding identification NORMAL NRG PT panel in platelet poor plasma by coagulation assay - 10/19/16 20:45 Prothrombin time (PT) in platelet poor plasma by coagulation assay 12.2 s 12.2-14.7 INR in platelet poor plasma or blood by coagulation assay 0.9 0.8-1.4 Activated partial thromboplastin time (aPTT) in platelet poor plasma bycoagulation assay - 10/19/16 20:45 Activated partial thromboplastin time (aPTT) in platelet poor plasma bycoagulation assay 26 s 24-35 Comprehensive metabolic panel - 10/19/16 20:45 Serum or plasma sodium measurement (moles/volume) 137 mmol/L 135-145 Serum or plasma potassium measurement (moles/volume) 3.6 mmol/L 3.6-5.0 Serum or plasma chloride measurement (moles/volume) 108 mmol/L 98-107 Carbon dioxide 18 mmol/L 21-32 Serum or plasma anion gap determination (moles/volume) 11 mmol/L 5-14 Serum or plasma urea nitrogen measurement (mass/volume) 8 mg/dL 7-18 Serum or plasma creatinine measurement (mass/volume) 0.60 mg/dL 0.60-1.30 Serum or plasma urea nitrogen/creatinine mass ratio 13 NRG Serum or plasma creatinine measurement with calculation of estimated glomerular filtration rate > NRG Serum or plasma glucose measurement (mass/volume) 78 mg/dL 70-105 Serum or plasma calcium measurement (mass/volume) 8.6 mg/dL 8.5-10.1 Serum or plasma total bilirubin measurement (mass/volume) 0.2 mg/dL 0.1-1.0 Serum or plasma alkaline phosphatase measurement (enzymatic activity/volume) 110 U/L 40-136 Serum or plasma aspartate aminotransferase measurement (enzymatic activity/ volume) 11 U/L 5-34 Serum or plasma alanine aminotransferase measurement (enzymatic activity/volume ) 6 U/L 0-55 Serum or plasma protein measurement (mass/volume) 6.2 g/dL 6.4-8.2 Serum or plasma albumin measurement (mass/volume) 3.7 g/dL 3.2-4.5 Magnesium - 10/19/16 20:45 Magnesium 2.1 mg/dL 1.8-2.4 Serum or plasma creatine kinase measurement (enzymatic activity/volume) - 10/19 20:45 Serum or plasma creatine kinase measurement (enzymatic activity/volume) 34 U/L 29-168 Serum or plasma creatine kinase MB measurement (enzymatic activity/volume) - 20:45 Serum or plasma creatine kinase MB measurement (enzymatic activity/volume) 0.7 ng/mL <6.6 Serum or plasma troponin i.cardiac measurement (mass/volume) - 10/19/16 20:45 Serum or plasma troponin i.cardiac measurement (mass/volume) < ng/ mL <0.30 Serum or plasma amylase measurement (enzymatic activity/volume) - 10/19/16 20: 45 Serum or plasma amylase measurement (enzymatic activity/volume) 61 U /L 25-125 Lipase - 10/19/16 20:45 Lipase 27 U/L 8-78 Serum or plasma lithium measurement (moles/volume) - 10/19/16 20:45 BNP level < pg/mL <100.0 Complete blood count (CBC) with automated white blood cell (WBC) differential - 10/20/16 06:08 Blood leukocytes automated count (number/volume) 11.9 10*3/uL 4.3-11.0 Blood erythrocytes automated count (number/volume) 3.63 10*6/uL 4.35-5.85 Venous blood hemoglobin measurement (mass/volume) 11.3 g/dL 11.5-16.0 Blood hematocrit (volume fraction) 33 % 35-52 Automated erythrocyte mean corpuscular volume 91 [foz_us] 80-99 Automated erythrocyte mean corpuscular hemoglobin (mass per erythrocyte) 31 pg 25-34 Automated erythrocyte mean corpuscular hemoglobin concentration measurement ( mass/volume) 34 g/dL 32-36 Automated erythrocyte distribution width ratio 13.7 % 10.0-14.5 Automated blood platelet count (count/volume) 288 10*3/uL 130-400 Automated blood platelet mean volume measurement 10.3 [foz_us] 7.4-10.4 Automated blood neutrophils/100 leukocytes 70 % 42-75 Automated blood lymphocytes/100 leukocytes 19 % 12-44 Blood monocytes/100 leukocytes 9 % 0-12 Automated blood eosinophils/100 leukocytes 2 % 0-10 Automated blood basophils/100 leukocytes 0 % 0-10 Blood neutrophils automated count (number/volume) 8.4 10*3 1.8-7.8 Blood lymphocytes automated count (number/volume) 2.2 10*3 1.0-4.0 Blood monocytes automated count (number/volume) 1.1 10*3 0.0-1.0 Automated eosinophil count 0.2 10*3/uL 0.0-0.3 Automated blood basophil count (count/volume) 0.0 10*3/uL 0.0-0.1 Comprehensive metabolic panel - 10/20/16 06:08 Serum or plasma sodium measurement (moles/volume) 137 mmol/L 135-145 Serum or plasma potassium measurement (moles/volume) 3.6 mmol/L 3.6-5.0 Serum or plasma chloride measurement (moles/volume) 110 mmol/L 98-107 Carbon dioxide 17 mmol/L 21-32 Serum or plasma anion gap determination (moles/volume) 10 mmol/L 5-14 Serum or plasma urea nitrogen measurement (mass/volume) 6 mg/dL 7-18 Serum or plasma creatinine measurement (mass/volume) 0.55 mg/dL 0.60-1.30 Serum or plasma urea nitrogen/creatinine mass ratio 11 NRG Serum or plasma creatinine measurement with calculation of estimated glomerular filtration rate > NRG Serum or plasma glucose measurement (mass/volume) 120 mg/dL 70-105 Serum or plasma calcium measurement (mass/volume) 8.1 mg/dL 8.5-10.1 Serum or plasma total bilirubin measurement (mass/volume) 0.1 mg/dL 0.1-1.0 Serum or plasma alkaline phosphatase measurement (enzymatic activity/volume) 96 U/L 40-136 Serum or plasma aspartate aminotransferase measurement (enzymatic activity/ volume) 9 U/L 5-34 Serum or plasma alanine aminotransferase measurement (enzymatic activity/volume ) 6 U/L 0-55 Serum or plasma protein measurement (mass/volume) 5.3 g/dL 6.4-8.2 Serum or plasma albumin measurement (mass/volume) 3.2 g/dL 3.2-4.5 Methicillin resistant Staphylococcus aureus (MRSA) screening culture - 12:10 Methicillin resistant Staphylococcus aureus (MRSA) screening culture NEG NRG Complete blood count (CBC) with automated white blood cell (WBC) differential - 01/19/17 06:22 Blood leukocytes automated count (number/volume) 15.4 10*3/uL 4.3-11.0 Blood erythrocytes automated count (number/volume) 4.14 10*6/uL 4.35-5.85 Venous blood hemoglobin measurement (mass/volume) 12.6 g/dL 11.5-16.0 Blood hematocrit (volume fraction) 37 % 35-52 Automated erythrocyte mean corpuscular volume 90 [foz_us] 80-99 Automated erythrocyte mean corpuscular hemoglobin (mass per erythrocyte) 30 pg 25-34 Automated erythrocyte mean corpuscular hemoglobin concentration measurement ( mass/volume) 34 g/dL 32-36 Automated erythrocyte distribution width ratio 13.8 % 10.0-14.5 Automated blood platelet count (count/volume) 269 10*3/uL 130-400 Automated blood platelet mean volume measurement 11.1 [foz_us] 7.4-10.4 Automated blood neutrophils/100 leukocytes 74 % 42-75 Automated blood lymphocytes/100 leukocytes 17 % 12-44 Blood monocytes/100 leukocytes 8 % 0-12 Automated blood eosinophils/100 leukocytes 1 % 0-10 Automated blood basophils/100 leukocytes 0 % 0-10 Blood neutrophils automated count (number/volume) 11.3 10*3 1.8-7.8 Blood lymphocytes automated count (number/volume) 2.6 10*3 1.0-4.0 Blood monocytes automated count (number/volume) 1.3 10*3 0.0-1.0 Automated eosinophil count 0.1 10*3/uL 0.0-0.3 Automated blood basophil count (count/volume) 0.0 10*3/uL 0.0-0.1 Blood type T Indirect antibody screen panel - 01/19/17 06:22 ABO+Rh group OP NRG Transfusion band number [id number] NR Blood group antibody screen NEGATIVE NR Complete blood count (CBC) with automated white blood cell (WBC) differential - 01/20/17 05:58 Blood leukocytes automated count (number/volume) 11.6 10*3/uL 4.3-11.0 Blood erythrocytes automated count (number/volume) 3.77 10*6/uL 4.35-5.85 Venous blood hemoglobin measurement (mass/volume) 11.2 g/dL 11.5-16.0 Blood hematocrit (volume fraction) 34 % 35-52 Automated erythrocyte mean corpuscular volume 91 [foz_us] 80-99 Automated erythrocyte mean corpuscular hemoglobin (mass per erythrocyte) 30 pg 25-34 Automated erythrocyte mean corpuscular hemoglobin concentration measurement ( mass/volume) 33 g/dL 32-36 Automated erythrocyte distribution width ratio 13.9 % 10.0-14.5 Automated blood platelet count (count/volume) 242 10*3/uL 130-400 Automated blood platelet mean volume measurement 11.0 [foz_us] 7.4-10.4 Automated blood neutrophils/100 leukocytes 67 % 42-75 Automated blood lymphocytes/100 leukocytes 23 % 12-44 Blood monocytes/100 leukocytes 9 % 0-12 Automated blood eosinophils/100 leukocytes 1 % 0-10 Automated blood basophils/100 leukocytes 0 % 0-10 Blood neutrophils automated count (number/volume) 7.7 10*3 1.8-7.8 Blood lymphocytes automated count (number/volume) 2.7 10*3 1.0-4.0 Blood monocytes automated count (number/volume) 1.0 10*3 0.0-1.0 Automated eosinophil count 0.1 10*3/uL 0.0-0.3 Automated blood basophil count (count/volume) 0.0 10*3/uL 0.0-0.1 Encounters ACCT No. Visit Date/Time Discharge Status Pt. Type Provider Facility Loc./Unit Complaint [id number] 11/09/2017 11:10:00 11/09/2017 23:59:59 CLS Outpatient MERY FLOWER DO [facility] RAD N93.8 AUB [id number] 01/19/2017 06:10:00 01/21/2017 13:45:00 DIS Inpatient MERY FLOWER DO [facility] WS PREVIOUS SECTION [id number] 01/19/2017 13:00:00 01/19/2017 23:59:59 CLS Preadmit AMY MONREAL, DIONE Garces [facility] CARD PALPITATION,, HTN [id number] 10/20/2016 12:39:00 01/18/2017 00:01:00 DIS Outpatient DIONE REYES MD [facility] CARD PALPITATION,, HTN [id number] 01/12/2017 12:04:00 01/12/2017 12:30:00 DIS Outpatient MERY FLOWER DO [facility] PREOP PREVIOUS SECTION [id number] 11/08/2016 10:03:00 11/08/2016 23:59:59 CLS Outpatient MERY FLOWER DO [facility] RAD [id number] 10/27/2016 08:52:00 10/27/2016 18:05:00 DIS Outpatient MERY FLOWER DO [facility] WSo 27 WKS CRAMPING [id number] 10/19/2016 21:35:00 10/20/2016 12:30:00 DIS Inpatient CHING WALLACE MERY Del Valle [facility] LDRP PALPITATIONS,CHEST PAIN, DYSPNEA [id number] 02/19/2016 11:03:00 02/19/2016 15:15:00 DIS Outpatient RERE PAVON MD [facility] CERVICAL INTRAEPITHELIAL NEOPLASIA 3 [id number] 02/18/2016 12:22:00 02/18/2016 14:24:00 DIS Outpatient RERE PAVON MD [facility] PREOP RODGER 3 [id number] 01/22/2016 10:50:00 01/22/2016 14:25:00 DIS Outpatient RERE PAVON MD [facility] MISSED AB [id number] 01/21/2016 05:31:00 01/21/2016 09:17:00 DIS Outpatient RERE PAVON MD [facility] PREOP MISSED AB [id number] 01/17/2016 20:24:00 01/17/2016 22:44:00 DIS Emergency SINTIA TIRDAO [facility] ER 6 WKS , ABD PAIN LT SIDE [id number] 08/05/2014 22:52:00 08/06/2014 00:30:00 DIS Emergency KENNETH MONREAL, PA Lee [facility] ER CHEST CONGESTION, HEAD ACHE [id number] 07/26/2014 22:27:00 07/26/2014 23:23:00 DIS Emergency FELA MONREAL, SHARI Ruth [facility] ER FEVER, BODYACHES, COUGH [id number] 01/20/2014 01:45:00 01/20/2014 03:29:00 DIS Emergency MONTSE HERRERA MD [facility] ER VOMITING DIARRHEA [id number] 01/19/2014 04:57:00 01/19/2014 05:42:00 DIS Emergency SHARI CHAHAL MD [facility] ER DIFFICULTY BREATHING [id number] 12/13/2013 23:15:00 12/14/2013 00:48:00 DIS Emergency MONTSE HERRERA MD [facility] ER LOWER ABD PAIN [id number] 11/03/2014 16:24:00 Document Registration [id number] 04/26/2011 12:42:00 Document Registration
--- NOTE | 2018-04-18 19:34 | ED Abdominal Pain ---
General Stated Complaint: LOWER ABD PAIN Source of Information: Patient Exam Limitations: No Limitations History of Present Illness Date Seen by Provider: Apr 18, 2018 Time Seen by Provider: 19:31 Initial Comments Patient is a 28-year-old female who presents to the emergency room with complaints of right lower quadrant abdominal pain that started today and diarrhea for the past few days.. She states the pain started at 12:30 PM today and has progressively became worse throughout the day. She denies nausea, vomiting, urinary tract symptoms, or fevers. She reports history of ovarian cyst. Timing/Duration: 5-6 Days Severity/Quality: Moderate Location: RLQ Radiation: No Radiation Associated Symptoms: Denies Symptoms Allergies and Home Medications Allergies Coded Allergies: No Known Drug Allergies (Unverified , 04/18/18) Home Medications Docusate Sodium 100 Mg Capsule, 100 MG PO BID PRN for CONSTIPATION-1ST LINE Prescribed by: MERY FLOWER on 01/19/17 0808 Hydrocodone Bit/Acetaminophen 1 Each Tablet, 1-2 TAB PO Q4H PRN for PAIN- MODERATE Prescribed by: MERY FLOWER on 01/19/17 0808 Ibuprofen 600 Mg Tablet, 600 MG PO Q6H Prescribed by: MERY FLOWER on 01/19/17 0808 Patient Home Medication List Home Medication List Reviewed: Yes Review of Systems Constitutional: see HPI; No chills, No fever Gastrointestinal: See HPI, Abdominal Pain (right lower quadrant abdominal pain) ; Denies Constipated; Diarrhea; Denies Nausea, Denies Vomiting All Other Systems Reviewed Negative Unless Noted: Yes Past Wwubeud-Vxonop-Vaoxqr Hx Past Med/Social Hx: Reviewed Nursing Past Med/Soc Hx Patient Social History Type Used: Cigarettes Former Smoker, Quit: Apr 14, 2016 2nd Hand Smoke Exposure: No Recent Hopitalizations: No Immunizations Up To Date Date of Influenza Vaccine: Jul 20, 2016 Seasonal Allergies Seasonal Allergies: No Past Medical History Surgeries: Yes (D&C; X 1) Appendectomy, Section, Tonsillectomy Respiratory: No Cardiac: No Neurological: No Reproductive Disorders: Yes (2 MISCARRIAGES) Female Reproductive Disorders: Endometriosis, 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 Sexually Transmitted Disease: No HIV/AIDS: No Genitourinary: No UTI-Chronic Gastrointestinal: Yes (DURING ) Gastroesophageal Reflux Musculoskeletal: No Endocrine: No HEENT: No Loss of Vision: Denies Hearing Impairment: Denies Cancer: No Psychosocial: No Integumentary: No Blood Disorders: No Adverse Reaction/Blood Tranf: No (N/A) Family Medical History Reviewed Nursing Family Hx Hypertension 19 MOTHER Physical Exam Vital Signs Vital Signs - First Documented 04/18/18 19:52 Temp 98.6 Pulse 72 Resp 14 B/P (MAP) 121/85 (97) Pulse Ox 98 O2 Delivery Room Air Capillary Refill : Height/Weight/BMI Height: 5'5.00" Weight: 175lbs. 6.0oz. 79.727576wv; 29.2 BMI Method:Stated General Appearance: WD/WN, no apparent distress Respiratory: chest non-tender, lungs clear, normal breath sounds, no respiratory distress, no accessory muscle use Cardiovascular: regular rate, rhythm, no edema, no gallop, no JVD, no murmur Gastrointestinal: normal bowel sounds, soft, no organomegaly, no pulsatile mass , tenderness (patient very tender on palpation right lower quadrant.) Neurologic/Psychiatric: alert, normal mood/affect, oriented x 3 Skin: normal color, warm/dry Progress/Results/Core Measures Results/Orders Lab Results Laboratory Tests Test 04/18/18 19:32 04/18/18 19:37 Range/Units Urine Color YELLOW Urine Clarity CLEAR Urine pH 6 5-9 Urine Specific Jasper 1.015 L 1.016-1.022 Urine Protein NEGATIVE NEGATIVE Urine Glucose (UA) NEGATIVE NEGATIVE Urine Ketones NEGATIVE NEGATIVE Urine Nitrite NEGATIVE NEGATIVE Urine Bilirubin NEGATIVE NEGATIVE Urine Urobilinogen NORMAL NORMAL MG/DL Urine Leukocyte Esterase NEGATIVE NEGATIVE Urine RBC (Auto) 1+ H NEGATIVE Urine RBC 0-2 /HPF Urine WBC NONE /HPF Urine Squamous Epithelial Cells 2-5 /HPF Urine Crystals NONE /LPF Urine Bacteria NONE /HPF Urine Casts NONE /LPF Urine Mucus NEGATIVE /LPF Urine Culture Indicated NO White Blood Count 16.6 H 4.3-11.0 10^3/uL Red Blood Count 5.21 4.35-5.85 10^6/uL Hemoglobin 16.1 H 11.5-16.0 G/DL Hematocrit 48 35-52 % Mean Corpuscular Volume 92 80-99 FL Mean Corpuscular Hemoglobin 31 25-34 PG Mean Corpuscular Hemoglobin Concent 34 32-36 G/DL Red Cell Distribution Width 13.6 10.0-14.5 % Platelet Count 313 130-400 10^3/uL Mean Platelet Volume 11.1 H 7.4-10.4 FL Neutrophils (%) (Auto) 73 42-75 % Lymphocytes (%) (Auto) 18 12-44 % Monocytes (%) (Auto) 7 0-12 % Eosinophils (%) (Auto) 2 0-10 % Basophils (%) (Auto) 0 0-10 % Neutrophils # (Auto) 12.1 H 1.8-7.8 X 10^3 Lymphocytes # (Auto) 3.0 1.0-4.0 X 10^3 Monocytes # (Auto) 1.1 H 0.0-1.0 X 10^3 Eosinophils # (Auto) 0.3 0.0-0.3 10^3/uL Basophils # (Auto) 0.0 0.0-0.1 10^3/uL Neutrophils % (Manual) 62 % Lymphocytes % (Manual) 24 % Monocytes % (Manual) 10 % Eosinophils % (Manual) 2 % Basophils % (Manual) 0 % Band Neutrophils 1 % Blood Morphology Comment NORMAL Sodium Level 139 135-145 MMOL/L Potassium Level 4.0 3.6-5.0 MMOL/L Chloride Level 105 98-107 MMOL/L Carbon Dioxide Level 24 21-32 MMOL/L Anion Gap 10 5-14 MMOL/L Blood Urea Nitrogen 9 7-18 MG/DL Creatinine 0.76 0.60-1.30 MG/DL Estimat Glomerular Filtration Rate > 60 BUN/Creatinine Ratio 12 Glucose Level 101 70-105 MG/DL Calcium Level 9.8 8.5-10.1 MG/DL Corrected Calcium 8.5-10.1 MG/DL Total Bilirubin 0.3 0.1-1.0 MG/DL Aspartate Amino Transf (AST/SGOT) 16 5-34 U/L Alanine Aminotransferase (ALT/SGPT) 16 0-55 U/L Alkaline Phosphatase 101 40-136 U/L Total Protein 7.5 6.4-8.2 GM/DL Albumin 5.0 H 3.2-4.5 GM/DL Amylase Level 54 25-125 U/L Lipase 24 8-78 U/L Serum Test, Qualitative NEGATIVE NEGATIVE My Orders Orders - CRISTIAN SINGH Comprehensive Metabolic Panel (04/18/18 19:30) Lipase (04/18/18 19:30) Amylase (04/18/18 19:30) Hcg,Qualitative Serum (04/18/18 19:30) Cbc With Automated Diff (04/18/18 19:30) Fentanyl Injection (Sublimaze Injection (04/18/18 19:45) Ns Iv 1000 Ml (Sodium Chloride 0.9%) (04/18/18 19:45) Manual Differential (04/18/18 19:37) Ct Abdomen/Pelvis W (04/18/18 20:04) Iohexol Injection (Omnipaque 350 Mg/Ml 1 (04/18/18 20:30) Sodium Chloride Flush (Catheter Flush Sy (04/18/18 20:30) Pharmacy Communication (Pharmacy Communi (04/18/18 20:20) Ns (Ivpb) (Sodium Chloride 0.9%) (04/18/18 20:30) Chest Pa/Lat (2 View) (04/18/18 21:19) Medications Given in ED Current Medications Medications Dose Ordered Sig/Martina Route Start Time Stop Time Status Last Admin Dose Admin Fentanyl Citrate 25 mcg ONCE ONCE IVP 04/18/18 19:45 04/18/18 19:46 DC 04/18/18 19:44 25 MCG Iohexol 100 ml ONCE ONCE IV 04/18/18 20:30 04/18/18 20:31 DC 04/18/18 20:31 100 ML Sodium Chloride 10 ml NEEDED PRN IV 04/18/18 20:30 04/18/18 20:31 10 ML Sodium Chloride 250 ml ONCE ONCE IV 04/18/18 20:30 04/18/18 20:31 DC 04/18/18 20:31 80 ML Vital Signs/I&O 04/18/18 19:52 Temp 98.6 Pulse 72 Resp 14 B/P (MAP) 121/85 (97) Pulse Ox 98 O2 Delivery Room Air Departure Impression Primary Impression: Abdominal pain Qualified Codes: R10.84 - Generalized abdominal pain Additional Impression: Enteritis Disposition: 01 HOME, SELF-CARE Condition: Stable/Unchanged Departure-Patient Inst. Decision time for Depature: 21:28 Referrals: RAYMUNDO MEDINA DO (PCP/Family) Primary Care Physician Patient Instructions: Diarrhea in Adolescents and Adults, Acute Abdomen (Belly Pain), Adult (DC) Add. Discharge Instructions: You may use [id number] antidiarrheals as directed by the bottle. Take the pain medication for pain that is unrelieved by Tylenol and ibuprofen. Ensure that her drinking plenty of clear liquids like water. Follow-up with her primary care provider within 1 week for recheck. Return back to the emergency room for any worsening pain, fevers, nausea, vomiting, diarrhea, or any other concerns as needed. Scripts Hydrocodone Bit/Acetaminophen (Hydrocodone/Acetaminophen 5/325mg Tablet) 1 Tab Tab 1 EACH PO Q6H PRN for PAIN, #14 TAB Prov: CRISTIAN SINGH 04/18/18 CRISTIAN SINGH Apr 18, 2018 19:34
[2018-04-18 19:43] LABS: BILIRUBIN,URINE NEGATIVE (NEGATIVE); CLARITY,URINE CLEAR; COLOR,URINE YELLOW; GLUCOSE, URINE (UA) NEGATIVE (NEGATIVE); KETONES,URINE NEGATIVE (NEGATIVE); LEUKOCYTE ESTERASE ,URINE NEGATIVE (NEGATIVE); NITRITE,URINE NEGATIVE (NEGATIVE); PH,URINE 6 (5-9); PROTEIN,URINE NEGATIVE (NEGATIVE); UROBILINOGEN,URINE NORMAL (NORMAL)
[2018-04-18 19:45] LABS: BASOPHILS % (AUTO) 0 % (0-10); EOSINOPHILS # (AUTO) 0.3 10^3/uL (0.0-0.3); EOSINOPHILS % (AUTO) 2 % (0-10); HEMATOCRIT 48 % (35-52); HEMOGLOBIN 16.1 G/DL (11.5-16.0); LYMPHOCYTES % (AUTO) 18 % (12-44); MEAN CORPUSCULAR HEMOGLOBIN 31 PG (25-34); MEAN CORPUSCULAR HGB CONC 34 G/DL (32-36); MEAN CORPUSCULAR VOLUME 92 FL (80-99); MEAN PLATELET VOLUME 11.1 FL (7.4-10.4); MONOCYTES # (AUTO) 1.1 X 10^3 (0.0-1.0); MONOCYTES % (AUTO) 7 % (0-12); NEUTROPHILS # (AUTO) 12.1 X 10^3 (1.8-7.8); NEUTROPHILS % (AUTO) 73 % (42-75); PLATELET COUNT 313 10^3/uL (130-400); RED BLOOD COUNT 5.21 10^6/uL (4.35-5.85); RED CELL DISTRIBUTION WIDTH 13.6 % (10.0-14.5); WHITE BLOOD COUNT 16.6 10^3/uL (4.3-11.0)
[2018-04-18] MEDS ORDERED: NS IV 1000 ML 1,000 ML IV SCH (19:45)
[2018-04-18] MEDS ORDERED: fentaNYL INJECTION 100 MCG/2 ML AMP IVP ONE (19:45)
[2018-04-18 19:52] LABS: RBC,URINE 0-2 /HPF
[2018-04-18 19:59] LABS: BAND NEUTROPHILS 1 %; BASOPHILS % (MANUAL) 0 %; EOSINOPHILS % (MANUAL) 2 %; LYMPHOCYTES % (MANUAL) 24 %; MONOCYTES % (MANUAL) 10 %; NEUTROPHILS % (MANUAL) 62 %
[2018-04-18 20:00] LABS: RBC MORPH NORMAL
[2018-04-18 20:07] LABS: ALANINE AMINOTRANSFERASE 16 U/L (0-55); ALKALINE PHOSPHATASE 101 U/L (40-136); AMYLASE 54 U/L (25-125); BILIRUBIN,TOTAL 0.3 MG/DL (0.1-1.0); BUN/CREATININE RATIO 12; CALCIUM 9.8 MG/DL (8.5-10.1); CARBON DIOXIDE 24 MMOL/L (21-32); CHLORIDE 105 MMOL/L (98-107); CREATININE SERUM 0.76 MG/DL (0.60-1.30); GFR ESTIMATED > 60; GLUCOSE 101 MG/DL (70-105); LIPASE 24 U/L (8-78); SODIUM 139 MMOL/L (135-145); TOTAL PROTEIN 7.5 GM/DL (6.4-8.2)
[2018-04-18] MEDS ORDERED: NS 250 ML (IVPB) BAG IV ONE (20:30)
[2018-04-18] MEDS ORDERED: IOHEXOL 350 MG/ML 100 ML (OMNIPAQUE 350) VIAL IV ONE (20:30)
[2018-04-18] MEDS ORDERED: CATHETER FLUSH 10 ML SYR IV PRN (20:30)
--- NOTE | 2018-04-18 21:09 | Diagnostic Imaging Report ---
PROCEDURE: CT abdomen and pelvis with contrast. TECHNIQUE: Multiple contiguous axial images were obtained through the abdomen and pelvis after administration of intravenous contrast. INDICATION: Right lower quadrant pain. COMPARISON: The previous CT abdomen/pelvis exam of 04/26/2011 noted a small amount of free fluid in the pelvis. There is no acute abnormality in the abdomen or pelvis noted otherwise. On this exam, there is no free fluid in the pelvis. As noted on the prior exam, there is an IUD within the uterus. The IUD seems to be in good position. There is no pelvic mass identified. The urinary bladder is grossly unremarkable. By history, the appendix is surgically absent. There is some fluid in the small bowel. This appearance is of uncertain etiology. There is no sign of a bowel obstruction. The possibly that there is an element of mild enteritis present should be considered. The liver, spleen, pancreas, adrenals, kidneys, aorta and inferior vena cava show no sign of an acute abnormality. The gallbladder is not well-distended and consequently difficult to assess. The stomach is partially filled with fluid and also difficult to evaluate. The lung bases are generally clear. However, a vague area of increased density has developed in the right lower lobe. This finding is nonspecific but the possibility that there is an element of mild pneumonia/atelectasis in this area should be considered. The bone windows show no evidence for a fracture or for a destructive lesion. IMPRESSION: 1. There is no evidence for an acute abnormality of the abdomen or pelvis. 2. The fluid within the small bowel is nonspecific. The possibility that there is an element of mild enteritis present should be considered. 3. The IUD remains in good position within the uterus. 4. The vague area of increased density in the right lung base is of uncertain etiology. The possibility that there is an element of mild pneumonia present should be considered. Dictated by: Dictated on workstation # [id number]
[2018-04-18] MEDS ORDERED: ACHD5005 PO (21:34)
[2018-04-18 22:51] VITALS: BP 117/80
--- NOTE | 2018-04-19 07:13 | Diagnostic Imaging Report ---
Indication: Right lower lung infiltrate followup. PA and lateral chest. Heart size and pulmonary vascularity normal. Lungs are clear. There are no effusions or pneumothoraces. Impression: Negative chest. Dictated by: Dictated on workstation # [id number]
== END 2018-04-18 22:52 | disposition home or self-care (01) ==
LOC: ER 19:19 → EDUNIT# 19:19 → ER 22:52
DX: K52.9 Noninfective gastroenteritis and colitis, unspecified (principal); K21.9 Gastro-esophageal reflux disease without esophagitis; Z87.448 Personal history of other diseases of urinary system; Z87.891 Personal history of nicotine dependence; Z87.59 Personal history of other complications of pregnancy, childbirth and the puerperium; Z90.89 Acquired absence of other organs; Z87.440 Personal history of urinary (tract) infections
CPT/HCPCS: 36415; 71046; 74177; 80053; 81000; 82150; 83690; 84703; 85007; 85027

== ENCOUNTER 2018-07-23 17:08 | Emergency (ER) | payer SELFPAY ==
[~2018-07-23] VITALS: Ht 160 cm; Wt 56.7 kg
[~2018-07-23 17:08] MED LIST changes: -OXYC-202 PO; +OXYC1TAB12 PO
--- OUTSIDE RECORDS SUMMARY | 2018-07-23 17:15 | XMS REPORT | Continuity of Care Document ---
Author Author [facility] Organization [facility] Address Unknown Phone Unavailable Allergies Active Description Code Type Severity Reaction Onset Reported/Identified Relationship to Patient Clinical Status Yes No Known Drug Allergies [id number] Drug Allergy Unknown N/A 04/18/2018 Medications There is no data. Problems Date Dx Coded Attending Type Code Diagnosis Diagnosed By 04/26/2011 Ot 599.0 URIN TRACT INFECTION NOS 04/26/2011 Ot 789.09 ABDOMINAL PAIN, OTHER SPECIFIED SITE 12/14/2013 MONTSE HERRERA MD Ot 599.0 URIN TRACT INFECTION NOS 12/14/2013 MONTSE HERRERA MD Ot 789.09 ABDOMINAL PAIN, OTHER SPECIFIED SITE 01/19/2014 FELA MONREAL, SHARI Ruth Ot 519.11 ACUTE BRONCHOSPASM 01/19/2014 SHARI CHAHAL [...] DISEASES AND CONDITIONS COMPL PREG/C 10/27/2016 MERY FLOWRE DO Ot Z3A.28 28 WEEKS GESTATION OF [...] HEART DIS AND OTH DI 11/09/2016 MERY FOLWER DO Ot Z34.82 ENCOUNTER FOR SUPRVSN OF NORMAL PREGNANC 11/10/2016 MERY FLOWER DO Ot Z34.82 ENCOUNTER FOR SUPRVSN OF NORMAL PREGNANC 11/10/2016 DIONE REYES MD Ot O99.89 OTH DISEASES AND CONDITIONS COMPL PREG/C 11/10/2016 DIONE REYES MD Ot R00.2 PALPITATIONS 11/10/2016 DIONE REYES MD Ot Z82.49 FAMILY HX OF ISCHEM HEART DIS AND OTH DI 11/10/2016 FENECH DO, MERY S Ot Z34.82 ENCOUNTER FOR SUPRVSN OF NORMAL [...] DIONE REYES MD Ot R00.2 PALPITATIONS 01/12/2017 DIONE REYES MD Ot Z82.49 FAMILY HX [...] OTH DISEASES AND CONDITIONS COMPL PREG/C 01/18/2017 DIONE REYES MD Ot R00.2 PALPITATIONS 01/18/2017 DIONE [...] FOR SUPRVSN OF NORMAL PREGNANC 11/07/2017 DIONE REYSE MD Ot O99.89 OTH DISEASES AND CONDITIONS [...] N83.291 OTHER OVARIAN CYST, RIGHT SIDE 11/10/2017 NASIMAECH DOEMRY Ot N93.8 OTHER SPECIFIED ABNORMAL UTERINE AND VAG 11/10/2017 NASIMAECH MERY WALLACE Ot Z30.431 ENCOUNTER FOR ROUTINE CHECKING OF INTRAU 11/22/2017 MERY FLOWER DO Ot N83.291 OTHER OVARIAN CYST, RIGHT SIDE 11/22/2017 CHING DOMERY Ot N93.8 OTHER SPECIFIED ABNORMAL UTERINE AND VAG 11/22/2017 NASIMAECH DO, MERY Del Valle Ot Z30.431 ENCOUNTER FOR ROUTINE CHECKING OF INTRAU 04/27/2018 Ot K21.9 GASTRO- ESOPHAGEAL REFLUX DISEASE WITHOUT 04/27/2018 Ot K52.9 NONINFECTIVE GASTROENTERITIS AND COLITIS 04/27/2018 Ot R10.31 RIGHT LOWER QUADRANT PAIN 04/27/2018 Ot Z87.440 PERSONAL HISTORY OF URINARY (TRACT) INFE 04/27/2018 Ot Z87.448 PERSONAL HISTORY OF OTHER DISEASES OF UR 04/27/2018 Ot Z87.59 PERSONAL HISTORY OF COMP OF PREG, CHLDBR 04/27/2018 Ot Z87.891 PERSONAL HISTORY OF NICOTINE DEPENDENCE 04/27/2018 Ot Z90.89 ACQUIRED ABSENCE OF OTHER ORGANS 05/11/2018 CHING WALLACE, MERY Del Valle Ot N83.291 OTHER OVARIAN CYST, RIGHT SIDE 05/11/2018 CHING WALLACE, MERY Del Valle Ot N93.8 OTHER SPECIFIED ABNORMAL UTERINE AND VAG 05/11/2018 NASIMAECH , MERY Del Valle Ot Z30.431 ENCOUNTER FOR ROUTINE CHECKING OF INTRAU 05/11/2018 CHING WALLACE, MERY Del Valle Ot N83.291 OTHER OVARIAN CYST, RIGHT SIDE 05/11/2018 CHING DO, MERY Del Valle Ot N93.8 OTHER SPECIFIED ABNORMAL UTERINE AND VAG 05/11/2018 NASIMAECH , MERY Del Valle Ot Z30.431 ENCOUNTER FOR ROUTINE CHECKING OF INTRAU 07/09/2018 NASIMAECH DO, MERY Del Valle Ot N83.291 OTHER OVARIAN CYST, RIGHT SIDE 07/09/2018 NASIMAECH , MERY Del Valle Ot N93.8 OTHER SPECIFIED ABNORMAL UTERINE AND VAG 07/09/2018 NASIMAECH , MERY Del Valle Ot Z30.431 ENCOUNTER FOR ROUTINE CHECKING OF INTRAU Procedures Code Description Performed By Performed On [id number] EXTRACTION OF POC, LOW CERVICAL, OPEN AP [...] resistant Staphylococcus aureus (MRSA) screening culture NEG [facility] Complete blood count (CBC) with automated white [...] Automated blood platelet mean volume measurement 11.1 [fo_us] 7.4-10.4 Automated blood neutrophils/100 leukocytes 74 % [...] ABO+Rh group OP NRG Transfusion band number [id number] [facility] Blood group antibody screen NEGATIVE [facility] Complete blood count (CBC) with automated white blood cell (WBC) differential - 01/20/17 05:58 Blood leukocytes automated count (number/volume) 11.6 10*3/uL 4.3-11.0 Blood erythrocytes automated count (number/volume) 3.77 10*6/uL 4.35-5.85 Venous blood hemoglobin measurement (mass/volume) 11.2 g/dL 11.5-16.0 Blood hematocrit (volume fraction) 34 % 35-52 Automated erythrocyte mean corpuscular volume 91 [fo_us] 80-99 Automated erythrocyte mean corpuscular hemoglobin (mass [...] Status Pt. Type Provider Facility Loc./Unit Complaint [id number] 11/09/2017 11:10:00 11/09/2017 23:59:59 CLS Outpatient NASIMACOLE MERY S [facility] RAD N93.8 AUB [id number] 01/19/2017 06:10:00 01/21/2017 13:45:00 DIS Inpatient NASIMAECH DO MREY S [facility] WS PREVIOUS SECTION [id number] 01/19/2017 13:00:00 01/19/2017 23:59:59 CLS Preadmit DIONE REYES MD [facility] CARD PALPITATION,, HTN [id number] 10/20/2016 12:39:00 01/18/2017 00:01:00 DIS Outpatient DIONE REYES MD [facility] CARD PALPITATION,, HTN [id number] 01/12/2017 12:04:00 01/12/2017 12:30:00 DIS Outpatient CHING WALLACE MERY S [facility] PREOP PREVIOUS SECTION [id number] 11/08/2016 10:03:00 11/08/2016 23:59:59 CLS Outpatient NASIMACOLE WALLACE MERY S [facility] RAD [id number] 10/27/2016 08:52:00 10/27/2016 18:05:00 DIS Outpatient MERY FLOWER DO [facility] WSo 27 WKS CRAMPING [id number] 10/19/2016 21:35:00 10/20/2016 12:30:00 DIS Inpatient MERY FLOWER DO [facility] LDRP PALPITATIONS,CHEST PAIN, DYSPNEA [id number] 02/19/2016 11:03:00 02/19/2016 15:15:00 DIS Outpatient RERE PAVON MD [facility] CERVICAL INTRAEPITHELIAL NEOPLASIA 3 [id number] 02/18/2016 12:22:00 02/18/2016 14:24:00 DIS Outpatient RERE PAVON MD [facility] PREOP RODGER 3 [id number] 01/22/2016 10:50:00 01/22/2016 14:25:00 DIS Outpatient RERE PAVON MD [facility] MISSED AB [id number] 01/21/2016 05:31:00 01/21/2016 09:17:00 DIS Outpatient RERE PAVON MD [facility] PREOP MISSED AB [id number] 01/17/2016 20:24:00 01/17/2016 22:44:00 DIS Emergency SINTIA TIRADO [facility] ER 6 WKS , ABD PAIN LT SIDE [id number] 08/05/2014 22:52:00 08/06/2014 00:30:00 DIS Emergency PA COOPER MD [facility] ER CHEST CONGESTION, HEAD ACHE [id number] 07/26/2014 22:27:00 07/26/2014 23:23:00 DIS Emergency SHARI CHAHAL MD [facility] ER FEVER, BODYACHES, COUGH [id number] 01/20/2014 01:45:00 01/20/2014 03:29:00 DIS Emergency MONTSE HERRERA MD [facility] ER VOMITING DIARRHEA [id number] 01/19/2014 04:57:00 01/19/2014 05:42:00 DIS Emergency SHARI CHAHAL MD [facility] ER DIFFICULTY BREATHING [id number] 12/13/2013 23:15:00 12/14/2013 00:48:00 DIS Emergency JAVIER MONREAL, MONTSE Polo [facility] ER LOWER ABD PAIN [id number] 04/18/2018 19:19:00 Document Registration [id number] 11/03/2014 16:24:00 Document Registration [id number] 04/26/2011 12:42:00 Document Registration
--- NOTE | 2018-07-23 18:04 | Diagnostic Imaging Report ---
INDICATION: Cough and fever, chest pain, shortness of air for a week. EXAMINATION: Two-view chest, 07/23/2018. COMPARISON: 04/18/2018. FINDINGS: Infiltrate seen at the left lung base posteriorly. No other airspace opacities are seen. No pneumothorax. No effusions. Heart and pulmonary vasculature are unremarkable. IMPRESSION: Left base infiltrate; remaining chest unremarkable. Dictated by: Dictated on workstation # [id number]
--- NOTE | 2018-07-23 18:22 | ED General ---
General Chief Complaint: Cough/Cold/Flu Symptoms Stated Complaint: COUGH,FEVER Nursing Triage Note: AMBULATED TO ROOM 09 WITHOUT DIFFICULTY. COMPLAINS OF COUGH, CONGESTION, AND NOT FEELING WELL FOR A WEEK. STATES HER CHEST HURTS WHEN SHE COUGHS. WAS SEEN AT [facility] AND DX WITH A VIRUS. CHILD AND S/O ALSO SICK. Nursing Sepsis Screen: No Definite Risk Source of Information: Patient Exam Limitations: No Limitations History of Present Illness Date Seen by Provider: Jul 23, 2018 Time Seen by Provider: 17:35 Initial Comments This 28-year-old young lady presents to the emergency room with complaints of cough, chest discomfort, myalgia, fever, and night sweats. Illness first began with runny nose and cough one week ago Monday. Then on Monday, July 20 she developed fever. Symptoms have worsened since then. Her son was recently diagnosed with influenza B. She was tested in the clinic on Monday but was negative for influenza. She is concerned about being so ill without improvement , especially since she just started a new job. She is not febrile at the moment. Allergies and Home Medications Allergies Coded Allergies: No Known Drug Allergies (Unverified , 04/18/18) Home Medications Albuterol Sulfate 1 Puff Puff, 1-4 PUFF IH Q4H PRN for SHORTNESS OF BREATH No more than 4 puffs in 4 hours. For uncontrolled cough, wheezing, or shortness of breath Prescribed by: MONTSE MACIAS on 07/23/181823 Azithromycin 250 Mg Tablet, 250 MG PO UD TAKE 2 TABLETS ON DAY ONE THEN TAKE 1 TABLET DAILY FOR FOUR MORE DAYS Prescribed by: MONTSE MACIAS on 07/23/181823 Prednisone 20 Mg Tab, 1 TAB PO DAILY Prescribed by: MONTSE MACIAS on 07/23/181823 Patient Home Medication List Home Medication List Reviewed: Yes Review of Systems Review of Systems Constitutional: see HPI EENTM: see HPI Respiratory: see HPI Cardiovascular: no symptoms reported Gastrointestinal: no symptoms reported Genitourinary: no symptoms reported : No Musculoskeletal: see HPI Skin: no symptoms reported Psychiatric/Neurological: No Symptoms Reported Hematologic/Lymphatic: No Symptoms Reported Immunological/Allergic: no symptoms reported Past Uhdyyfr-Wkcptq-Bwpgjk Hx Past Med/Social Hx: Reviewed Nursing Past Med/Soc Hx Patient Social History Alcohol Use: Denies Use Recreational Drug Use: No Smoking Status: Current Everyday Smoker Type Used: Cigarettes Former Smoker, Quit: Apr 14, 2016 2nd Hand Smoke Exposure: No Recent Foreign Travel: No Contact w/Someone Who Travel: No Recent Infectious Disease Expo: No Recent Hopitalizations: No Immunizations Up To Date Date of Influenza Vaccine: Jul 20, 2016 Seasonal Allergies Seasonal Allergies: No Past Medical History Surgeries: Yes (D&C; X 1) Appendectomy, Section, Tonsillectomy Respiratory: No Cardiac: No Neurological: No Reproductive Disorders: Yes (2 MISCARRIAGES) Female Reproductive Disorders: Endometriosis, 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 (Mirena) Sexually Transmitted Disease: No HIV/AIDS: No Genitourinary: No UTI-Chronic Gastrointestinal: Yes (DURING ) Gastroesophageal Reflux Musculoskeletal: No Endocrine: No HEENT: No Loss of Vision: Denies Hearing Impairment: Denies Cancer: No Psychosocial: No Integumentary: No Blood Disorders: No Adverse Reaction/Blood Tranf: No (N/A) Family Medical History Hypertension 19 MOTHER Physical Exam Vital Signs Vital Signs - First Documented 07/23/18 17:14 Temp 99.4 Pulse 95 Resp 16 B/P (MAP) 126/93 (104) Pulse Ox 99 O2 Delivery Room Air Capillary Refill : Less Than 3 Seconds Height, Weight, BMI Height: 5'3.00" Weight: 125lbs. 6.0oz. 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 Skin: Normal Color, Warm/Dry Progress/Results/Core Measures Suspected Sepsis Recent Fever Within 48 Hours: No Infection Criteria Present: Suspected New Infection New/Unexplained Altered Menta: No Sepsis Screen: No Definite Risk SIRS Temperature:99.4 Pulse: 95 Respiratory Rate: 16 Blood Pressure 126 /93 Mean: 104 Results/Orders My Orders Orders - BRUEGGEMANN,MONTSE T MD Chest Pa/Lat (2 View) (07/23/18 17:42) Vital Signs/I&O 07/23/18 07/23/18 17:14 18:31 Temp 99.4 100.1 Pulse 95 87 Resp 16 16 B/P (MAP) 126/93 (104) 113/84 (94) Pulse Ox 99 98 O2 Delivery Room Air Room Air Capillary Refill : Less Than 3 Seconds Blood Pressure Mean: 104 Diagnostic Imaging Diagonstic Imaging: Xray Plain Films/CT/US/NM/MRI: chest Comments Chest x-ray viewed by me and report reviewed. See report below: NAME: LIZZIE SILVA [facility] REC#: [id number] PT STATUS: REG ER : 1990 PHYSICIAN: MONTSE HERRERA MD ADMIT DATE: 07/23/18/ER Signed Date of Exam: 07/23/18 CHEST PA/LAT (2 VIEW) INDICATION: Cough and fever, chest pain, shortness of air for a week. EXAMINATION: Two-view chest, 07/23/2018. COMPARISON: 04/18/2018. FINDINGS: Infiltrate seen at the left lung base posteriorly. No other airspace opacities are seen. No pneumothorax. No effusions. Heart and pulmonary vasculature are unremarkable. IMPRESSION: Left base infiltrate; remaining chest unremarkable. Dictated by: Dictated on workstation # [id number] Dict: 07/23/181756 Trans: 07/23/181833 Interpreted by: GISELLE DUDLEY MD Electronically signed by: GISELLE DUDLEY MD 07/23/18 1834 Departure Impression Primary Impression: Left lower lobe pneumonia Qualified Codes: J18.1 - Lobar pneumonia, unspecified organism Additional Impression: Acute bronchitis Qualified Codes: J20.9 - Acute bronchitis, unspecified Disposition: 01 HOME, SELF-CARE Condition: Stable Departure-Patient Inst. Decision time for Depature: 18:10 Referrals: RAYMUNDO MEDINA DO (PCP/Family) Primary Care Physician Patient Instructions: Acute Bronchitis, Adult (DC), Pneumonia, Adult (DC) Add. Discharge Instructions: Complete your antibiotic as prescribed. Stay home from work tomorrow. Do not return to work until your free of fever ( temperature over 100.0) for at least 24 hours. Drink plenty of clear liquids. You may take Tylenol (acetaminophen) and/or ibuprofen for pain or fever. Use your inhaler as prescribed, up to 4 puffs in a four-hour period of time. Return to care if you have worsening symptoms. All discharge instructions reviewed with patient and/or family. Voiced understanding. Scripts Albuterol Sulfate (PROAIR HFA) 1 Puff Puff 1-4 PUFF IH Q4H PRN for SHORTNESS OF BREATH, #1 PUFF No more than 4 puffs in 4 hours. For uncontrolled cough, wheezing, or shortness of breath Prov: MONTSE HERRERA MD 07/23/18 Prednisone (Prednisone) 20 Mg Tab 1 TAB PO DAILY, #4 TAB Prov: MONTSE HERRERA MD 07/23/18 Azithromycin (Azithromycin) 250 Mg Tablet 250 MG PO UD, #6 TAB TAKE 2 TABLETS ON DAY ONE THEN TAKE 1 TABLET DAILY FOR FOUR MORE DAYS Prov: MONTSE HERRERA MD 07/23/18 Work/School Note: Work Release Form Date Seen in the Emergency Department: Jul 23, 2018 Return to Work: Jul 25, 2018 Restrictions: Return-No Fever (24hrs) MONTSE HERRERA MD Jul 23, 2018 18:22
[2018-07-23] MEDS ORDERED: RT-ALBUINH IH (18:24)
[2018-07-23] MEDS ORDERED: AZIT250T12 PO (18:24)
[2018-07-23] MEDS ORDERED: PRD20T PO (18:24)
[2018-07-23 18:31] VITALS: BP 113/84
== END 2018-07-23 18:31 | disposition home or self-care (01) ==
LOC: EDUNIT# 17:08 → ER 17:09
DX: J18.1 Lobar pneumonia, unspecified organism (principal); J20.9 Acute bronchitis, unspecified; K21.9 Gastro-esophageal reflux disease without esophagitis; Z87.891 Personal history of nicotine dependence; Z79.51 Long term (current) use of inhaled steroids; Z79.52 Long term (current) use of systemic steroids; Z98.890 Other specified postprocedural states; Z90.49 Acquired absence of other specified parts of digestive tract; Z90.89 Acquired absence of other organs; Z87.59 Personal history of other complications of pregnancy, childbirth and the puerperium; Z97.5 Presence of (intrauterine) contraceptive device; Z87.448 Personal history of other diseases of urinary system; Z87.440 Personal history of urinary (tract) infections
CPT/HCPCS: 71046

== ENCOUNTER 2018-08-01 18:54 | Emergency (ER) | payer SELFPAY ==
[~2018-08-01] VITALS: Ht 165.1 cm; Wt 67.1 kg
[~2018-08-01 18:54] MED LIST changes: +AZIT250T12 PO; +RT-ALBUINH IH
--- NOTE | 2018-08-01 19:26 | ED Abdominal Pain ---
General Chief Complaint: Abdominal/GI Problems Stated Complaint: ABD PAIN Nursing Triage Note: Pt has cc of right lower abd pain since 1999 last night. Pt stated that she does not have her appendix. She thinks it is an ovarian cyst, but normally it gets better over time. Pt stated that she has pain urinating and had small bowel movement before she came, but not sure if she is constipated or not. Pt stated she is having nausea that comes and goes. Sepsis Screen: No Definite Risk Source of Information: Patient Exam Limitations: No Limitations History of Present Illness Date Seen by Provider: Aug 01, 2018 Time Seen by Provider: 19:24 Initial Comments To ER per private vehicle with reports of right lower quadrant suprapubic abdominal pain since 8 PM last night. Intermittent nausea. Does have some pain with urination.. She has a history of ovarian cysts, this feels similar. She has a remote history of appendectomy. Timing/Duration: 12-24 Hours Severity/Quality: Moderate Location: RLQ, Suprapubic Radiation: No Radiation Activities at Onset: None Associated Symptoms: Nausea/Vomiting Allergies and Home Medications Allergies Coded Allergies: No Known Drug Allergies (Unverified , 04/18/18) Home Medications Albuterol Sulfate 1 Puff Puff, 1-4 PUFF IH Q4H PRN for SHORTNESS OF BREATH No more than 4 puffs in 4 hours. For uncontrolled cough, wheezing, or shortness of breath Prescribed by: MONTSE MACIAS on 07/23/181823 Azithromycin 250 Mg Tablet, 250 MG PO UD TAKE 2 TABLETS ON DAY ONE THEN TAKE 1 TABLET DAILY FOR FOUR MORE DAYS Prescribed by: MONTSE MACIAS on 07/23/181823 Levofloxacin 500 Mg Tablet, 500 MG PO DAILY Prescribed by: LLOYD MENDOZA on 08/01/182045 Prednisone 20 Mg Tab, 1 TAB PO DAILY Prescribed by: MONTSE MACIAS on 07/23/181823 Patient Home Medication List Home Medication List Reviewed: Yes Review of Systems Review of Systems Constitutional: see HPI EENTM: No Symptoms Reported Respiratory: No Symptoms Reported Cardiovascular: No Symptoms Reported Gastrointestinal: See HPI, Abdominal Pain, Nausea Genitourinary: See HPI, Other (dysuria) Musculoskeletal: no symptoms reported Skin: no symptoms reported Psychiatric/Neurological: No Symptoms Reported Past Qkefyqj-Caeplt-Utjpnm Hx Patient Social History Type Used: Cigarettes Former Smoker, Quit: Apr 14, 2016 2nd Hand Smoke Exposure: No Recent Foreign Travel: No Contact w/Someone Who Travel: No Recent Infectious Disease Expo: No Recent Hopitalizations: No Immunizations Up To Date Date of Influenza Vaccine: Jul 20, 2016 Seasonal Allergies Seasonal Allergies: No Past Medical History Surgeries: Yes (D&C; X 1) Appendectomy, Section, Tonsillectomy Respiratory: No Cardiac: No Neurological: No : No Last Menstrual Period: Jul 17, 2018 Reproductive Disorders: Yes (2 MISCARRIAGES) Female Reproductive Disorders: Endometriosis, 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 Sexually Transmitted Disease: No HIV/AIDS: No Genitourinary: No UTI-Chronic Gastrointestinal: Yes (DURING ) Gastroesophageal Reflux Musculoskeletal: No Endocrine: No HEENT: No Loss of Vision: Denies Hearing Impairment: Denies Cancer: No Psychosocial: No Integumentary: No Blood Disorders: No Adverse Reaction/Blood Tranf: No (N/A) Family Medical History Hypertension 19 MOTHER Physical Exam Vital Signs Vital Signs - First Documented 08/01/18 19:05 Temp 98.9 Pulse 78 Resp 16 B/P (MAP) 139/90 (106) Pulse Ox 99 O2 Delivery Room Air Capillary Refill : Less Than 3 Seconds Height/Weight/BMI Height: 5'5.00" Weight: 148lbs. 6.0oz. 67.449151ui; 29.2 BMI Method:Stated General Appearance: WD/WN, no apparent distress HEENT: PERRL/EOMI, normal ENT inspection Neck: non-tender, full range of motion Respiratory: no respiratory distress, no accessory muscle use Gastrointestinal: normal bowel sounds, soft, tenderness (right lower) Extremities: normal range of motion, non-tender Neurologic/Psychiatric: alert, normal mood/affect, oriented x 3 Skin: normal color, warm/dry Progress/Results/Core Measures Results/Orders Lab Results Laboratory Tests Test 08/01/18 19:11 08/01/18 19:25 Range/Units Urine Color YELLOW Urine Clarity CLEAR Urine pH 5 5-9 Urine Specific [place] 1.010 L 1.016-1.022 Urine Protein NEGATIVE NEGATIVE Urine Glucose (UA) NEGATIVE NEGATIVE Urine Ketones NEGATIVE NEGATIVE Urine Nitrite NEGATIVE NEGATIVE Urine Bilirubin NEGATIVE NEGATIVE Urine Urobilinogen NORMAL NORMAL MG/DL Urine Leukocyte Esterase NEGATIVE NEGATIVE Urine RBC (Auto) NEGATIVE NEGATIVE Urine RBC NONE /HPF Urine WBC 2-5 /HPF Urine Squamous Epithelial Cells 5-10 /HPF Urine Crystals NONE /LPF Urine Bacteria MODERATE H /HPF Urine Casts NONE /LPF Urine Mucus NEGATIVE /LPF Urine Culture Indicated NO Urine Test NEGATIVE NEGATIVE White Blood Count 16.4 H 4.3-11.0 10^3/uL Red Blood Count 5.13 4.35-5.85 10^6/uL Hemoglobin 15.6 11.5-16.0 G/DL Hematocrit 47 35-52 % Mean Corpuscular Volume 91 80-99 FL Mean Corpuscular Hemoglobin 30 25-34 PG Mean Corpuscular Hemoglobin Concent 33 32-36 G/DL Red Cell Distribution Width 13.6 10.0-14.5 % Platelet Count 385 130-400 10^3/uL Mean Platelet Volume 10.3 7.4-10.4 FL Neutrophils (%) (Auto) 67 42-75 % Lymphocytes (%) (Auto) 23 12-44 % Monocytes (%) (Auto) 8 0-12 % Eosinophils (%) (Auto) 2 0-10 % Basophils (%) (Auto) 0 0-10 % Neutrophils # (Auto) 11.0 H 1.8-7.8 X 10^3 Lymphocytes # (Auto) 3.8 1.0-4.0 X 10^3 Monocytes # (Auto) 1.3 H 0.0-1.0 X 10^3 Eosinophils # (Auto) 0.3 0.0-0.3 10^3/uL Basophils # (Auto) 0.0 0.0-0.1 10^3/uL Neutrophils % (Manual) 71 % Lymphocytes % (Manual) 20 % Monocytes % (Manual) 6 % Eosinophils % (Manual) 3 % Basophils % (Manual) 0 % Band Neutrophils 0 % Blood Morphology Comment NORMAL Sodium Level 140 135-145 MMOL/L Potassium Level 3.8 3.6-5.0 MMOL/L Chloride Level 106 98-107 MMOL/L Carbon Dioxide Level 23 21-32 MMOL/L Anion Gap 11 5-14 MMOL/L Blood Urea Nitrogen 13 7-18 MG/DL Creatinine 0.82 0.60-1.30 MG/DL Estimat Glomerular Filtration Rate > 60 BUN/Creatinine Ratio 16 Glucose Level 101 70-105 MG/DL Calcium Level 9.9 8.5-10.1 MG/DL Corrected Calcium 8.5-10.1 MG/DL Total Bilirubin 0.2 0.1-1.0 MG/DL Aspartate Amino Transf (AST/SGOT) 18 5-34 U/L Alanine Aminotransferase (ALT/SGPT) 19 0-55 U/L Alkaline Phosphatase 96 40-136 U/L Total Protein 7.5 6.4-8.2 GM/DL Albumin 4.9 H 3.2-4.5 GM/DL My Orders Orders - LLOYD MENDOZA APRN Cbc With Automated Diff (08/01/18 19:23) Comprehensive Metabolic Panel (08/01/18 19:23) Ua Culture If Indicated (08/01/18 19:23) Urine Bedside (08/01/18 19:23) Iv Heplock-Insert (Order) (08/01/18 19:23) Ketorolac Injection (Toradol Injection) (08/01/18 19:30) Manual Differential (08/01/18 19:25) Hcg,Qualitative Urine (08/01/18 19:36) Ct Abdomen/Pelvis W (08/01/18 19:47) Iohexol Injection (Omnipaque 350 Mg/Ml 1 (08/01/18 20:30) Contrast Received (Contrast Received) (08/01/18 20:30) Ns (Ivpb) (Sodium Chloride 0.9%) (08/01/18 20:30) Medications Given in ED Current Medications Medications Dose Ordered Sig/Martina Route Start Time Stop Time Status Last Admin Dose Admin Iohexol 100 ml ONCE ONCE IV 08/01/18 20:30 08/01/18 20:31 DC 08/01/18 20:22 100 ML Ketorolac Tromethamine 30 mg ONCE ONCE IVP 08/01/18 19:30 08/01/18 19:31 DC 08/01/18 19:35 30 MG Sodium Chloride 250 ml ONCE ONCE IV 08/01/18 20:30 08/01/18 20:31 DC 08/01/18 20:22 80 ML Vital Signs/I&O 08/01/18 19:05 Temp 98.9 Pulse 78 Resp 16 B/P (MAP) 139/90 (106) Pulse Ox 99 O2 Delivery Room Air Blood Pressure Mean: 106 Departure Impression Primary Impression: Right lower quadrant abdominal pain Additional Impressions: Right ovarian cyst LLL pneumonia Disposition: 01 HOME, SELF-CARE Condition: Stable Departure-Patient Inst. Decision time for Depature: 19:26 Referrals: RAYMUNDO MEDINA DO (PCP) Primary Care Physician MERY FLOWER DO (Family) Primary Care Physician Patient Instructions: Acute Abdomen (Belly Pain), Adult (DC), 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 (DC) Add. Discharge Instructions: 1. Medication as directed 2. Return to ER for any concerns. 3. Call your family doctor tomorrow to make an appointment for further evaluation which should include an ultrasound of this cyst. All discharge instructions reviewed with patient and/or family. Voiced understanding. Scripts Hydrocodone/Acetaminophen ([place] 5-325 Tablet) 1 Each Tablet 1 EACH PO Q6H PRN for PAIN-MODERATE MDD 10, #10 TAB Prov: LLOYD MENDOZA APRN 08/01/18 Levofloxacin (Levaquin) 500 Mg Tablet 500 MG PO DAILY, #6 TAB Prov: LLOYD MENDOZA APRN 08/01/18 Work/School Note: Work Release Form Date Seen in the Emergency Department: Aug 01, 2018 Return to Work: Aug 03, 2018 LLOYD MENDOZA APRN Aug 01, 2018 19:26
[2018-08-01] MEDS ORDERED: KETOROLAC 30 MG/ML VIAL IVP ONE (19:30)
[2018-08-01 19:32] LABS: BASOPHILS % (AUTO) 0 % (0-10); EOSINOPHILS # (AUTO) 0.3 10^3/uL (0.0-0.3); EOSINOPHILS % (AUTO) 2 % (0-10); HEMATOCRIT 47 % (35-52); HEMOGLOBIN 15.6 G/DL (11.5-16.0); LYMPHOCYTES # (AUTO) 3.8 X 10^3 (1.0-4.0); LYMPHOCYTES % (AUTO) 23 % (12-44); MEAN CORPUSCULAR HEMOGLOBIN 30 PG (25-34); MEAN CORPUSCULAR HGB CONC 33 G/DL (32-36); MEAN CORPUSCULAR VOLUME 91 FL (80-99); MEAN PLATELET VOLUME 10.3 FL (7.4-10.4); MONOCYTES # (AUTO) 1.3 X 10^3 (0.0-1.0); MONOCYTES % (AUTO) 8 % (0-12); NEUTROPHILS % (AUTO) 67 % (42-75); PLATELET COUNT 385 10^3/uL (130-400); RED BLOOD COUNT 5.13 10^6/uL (4.35-5.85); RED CELL DISTRIBUTION WIDTH 13.6 % (10.0-14.5); WHITE BLOOD COUNT 16.4 10^3/uL (4.3-11.0)
[2018-08-01 19:37] LABS: BILIRUBIN,URINE NEGATIVE (NEGATIVE); COLOR,URINE YELLOW; GLUCOSE, URINE (UA) NEGATIVE (NEGATIVE); KETONES,URINE NEGATIVE (NEGATIVE); LEUKOCYTE ESTERASE ,URINE NEGATIVE (NEGATIVE); NITRITE,URINE NEGATIVE (NEGATIVE); PH,URINE 5 (5-9); PROTEIN,URINE NEGATIVE (NEGATIVE); UROBILINOGEN,URINE NORMAL (NORMAL)
[2018-08-01 19:47] LABS: CLARITY,URINE CLEAR
[2018-08-01 19:48] LABS: BACTERIA,URINE MODERATE /HPF
[2018-08-01 19:50] LABS: ALANINE AMINOTRANSFERASE 19 U/L (0-55); ALBUMIN 4.9 GM/DL (3.2-4.5); ALKALINE PHOSPHATASE 96 U/L (40-136); BILIRUBIN,TOTAL 0.2 MG/DL (0.1-1.0); BUN/CREATININE RATIO 16; CALCIUM 9.9 MG/DL (8.5-10.1); CARBON DIOXIDE 23 MMOL/L (21-32); CHLORIDE 106 MMOL/L (98-107); CREATININE SERUM 0.82 MG/DL (0.60-1.30); GFR ESTIMATED > 60; GLUCOSE 101 MG/DL (70-105); POTASSIUM 3.8 MMOL/L (3.6-5.0); SODIUM 140 MMOL/L (135-145); TOTAL PROTEIN 7.5 GM/DL (6.4-8.2)
[2018-08-01 19:52] LABS: BAND NEUTROPHILS 0 %; BASOPHILS % (MANUAL) 0 %; EOSINOPHILS % (MANUAL) 3 %; LYMPHOCYTES % (MANUAL) 20 %; MONOCYTES % (MANUAL) 6 %; NEUTROPHILS % (MANUAL) 71 %; RBC MORPH NORMAL
[2018-08-01] MEDS ORDERED: IOHEXOL 350 MG/ML 100 ML (OMNIPAQUE 350) VIAL IV ONE (20:30)
[2018-08-01] MEDS ORDERED: RECEIVED CONTRAST (Hold Metformin) IV SCH (20:30)
[2018-08-01] MEDS ORDERED: NS 250 ML (IVPB) BAG IV ONE (20:30)
--- NOTE | 2018-08-01 20:35 | Diagnostic Imaging Report ---
PROCEDURE: CT abdomen and pelvis with contrast. TECHNIQUE: Multiple contiguous axial images were obtained through the abdomen and pelvis after administration of intravenous contrast. INDICATION: Abdominal pain, nausea, vomiting COMPARISON: 04/18/2018 FINDINGS: Acute infiltrate is seen in the left base likely pneumonia. Right lung base is clear. Gallbladder, solid organs, vascular structures and bowel are normal. There is no free air. There is a cyst on the right ovary measuring approximately 3.5 cm, likely physiologic follicle. There is a small amount of free fluid in the pelvis. IUD is seen within the uterus. Distal ureters and urinary bladder are grossly unremarkable. Osseous structures are age appropriate. IMPRESSION: 1. Left lower lobe pneumonia 2. Right ovarian cyst likely physiologic follicle with a small amount of free fluid in the cul-de-sac. Dictated by: Dictated on workstation # [id number]
[2018-08-01] MEDS ORDERED: LEVO500T2 PO (20:46)
[2018-08-01] MEDS ORDERED: HYDR-4226 PO (20:47)
[2018-08-01] MEDS: RX-HYDROCODONE/APAP 5/325 MG #4 TAB PK PO PRN ×2 (20:58→21:07)
[2018-08-01] MEDS ORDERED: LEVOFLOXACIN 500 MG TAB (LEVAQUIN) PO ONE (21:00)
[2018-08-01 21:06] VITALS: BP 123/82
== END 2018-08-01 21:06 | disposition home or self-care (01) ==
LOC: EDUNIT# 18:54 → ER 18:55
DX: N83.201 Unspecified ovarian cyst, right side (principal); J18.1 Lobar pneumonia, unspecified organism; K21.9 Gastro-esophageal reflux disease without esophagitis; Z87.448 Personal history of other diseases of urinary system; Z79.51 Long term (current) use of inhaled steroids; Z79.52 Long term (current) use of systemic steroids; Z90.49 Acquired absence of other specified parts of digestive tract; Z87.891 Personal history of nicotine dependence; Z98.890 Other specified postprocedural states; Z90.89 Acquired absence of other organs; Z97.5 Presence of (intrauterine) contraceptive device; Z87.440 Personal history of urinary (tract) infections
CPT/HCPCS: 36415; 74177; 80053; 81000; 84703; 85007; 85027

== ENCOUNTER 2019-07-09 15:24 | Emergency (ER) | payer OTHER ==
[~2019-07-09] VITALS: Ht 165 cm; Wt 68.1 kg
[~2019-07-09 15:24] MED LIST changes: +HYDR-4226 PO; +LEVO500T2 PO
--- NOTE | 2019-07-09 18:00 | ED Headache ---
General Chief Complaint: Head/Cervical Problems Stated Complaint: SEVERE NECK AND SHOULDER PAIN RT SIDE Nursing Triage Note: really bad neck and shoulder pain on R side, has had this x 4 days Nursing Sepsis Screen: No Definite Risk Source: patient Exam Limitations: no limitations History of Present Illness Date Seen by Provider: Jul 09, 2019 Time Seen by Provider: 17:59 Allergies and Home Medications Allergies Coded Allergies: No Known Drug Allergies (Unverified , 04/18/18) Home Medications Albuterol Sulfate 1 Puff Puff, 1-4 PUFF IH Q4H PRN for SHORTNESS OF BREATH No more than 4 puffs in 4 hours. For uncontrolled cough, wheezing, or shortness of breath Prescribed by: MONTSE MACIAS on 07/23/181823 Azithromycin 250 Mg Tablet, 250 MG PO UD TAKE 2 TABLETS ON DAY ONE THEN TAKE 1 TABLET DAILY FOR FOUR MORE DAYS Prescribed by: MONTSE AMCIAS on 07/23/181823 Hydrocodone/Acetaminophen 1 Each Tablet, 1 EACH PO Q6H PRN for PAIN-MODERATE Prescribed by: LLOYD MENDOZA on 08/01/182046 Levofloxacin 500 Mg Tablet, 500 MG PO DAILY Prescribed by: LLOYD MENDOZA on 08/01/182045 Prednisone 20 Mg Tab, 1 TAB PO DAILY Prescribed by: MONTSE MACIAS on 07/23/181823 Past Hpjkkza-Ecqzzf-Tnbrio Hx Patient Social History Alcohol Use: Denies Use Recreational Drug Use: No Smoking Status: Current Everyday Smoker Type Used: Cigarettes Former Smoker, Quit: Apr 14, 2016 2nd Hand Smoke Exposure: Yes Recent Foreign Travel: No Contact w/Someone Who Travel: No Recent Infectious Disease Expo: No Recent Hopitalizations: No Immunizations Up To Date Date of Influenza Vaccine: Jul 20, 2016 Seasonal Allergies Seasonal Allergies: No Past Medical History Surgeries: Yes (D&C; X 2) Appendectomy, Section, Tonsillectomy Respiratory: No Cardiac: No Neurological: No Reproductive Disorders: Yes (2 MISCARRIAGES) Female Reproductive Disorders: Endometriosis, 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 6.0oz. 67.534710vu; 25.00 BMI Method:Stated Progress/Results/Core Measures Results/Orders My Orders Orders - SINTIA JOHNSON Ketorolac Injection (Toradol Injection) (07/09/19 18:06) Orphenadrine Injection (Norflex Injectio (07/09/19 18:06) Vital Signs/I&O 07/09/19 15:57 Temp 37.0 Pulse 82 Resp 18 B/P (MAP) 120/81 (94) Blood Pressure Mean: 94 POS Departure Impression Primary Impression: Torticollis, acute Disposition: 01 HOME, SELF-CARE Condition: Improved Departure-Patient Inst. Decision time for Depature: 18:24 Referrals: NO,LOCAL PHYSICIAN (PCP/Family) Primary Care Physician Patient Instructions: Torticollis, Adult Add. Discharge Instructions: All discharge instructions reviewed with patient and/or family. Voiced understanding. Medications as instructed. Tylenol Extra Strength wupe-jmp-rglnnqy as directed for pain. Use a heating pad or pack as needed for pain and muscle spasm. Avoid heavy lifting, twisting, hyperextending the neck for 3-5 days. Increase activity as tolerated. Stretches as instructed. Consider seeing a massage therapist and/or chiropractor as an outpatient for recheck. Follow-up with her family practitioner if no improvement in symptoms. Return in the emergency department for worsened symptoms, numbness, tingling, weakness, or any other concerns. 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
[2019-07-09] MEDS ORDERED: ORPHENADRINE 60 MG/2 ML (NORFLEX) AMP IM STA (18:06)
[2019-07-09] MEDS ORDERED: KETOROLAC 60 MG/2 ML VIAL IM STA (18:06)
[2019-07-09] MEDS ORDERED: NAPR-1071 PO (18:25)
[2019-07-09] MEDS ORDERED: PRD20T PO (18:25)
[2019-07-09] MEDS ORDERED: ORPH100T PO (18:25)
[2019-07-09 18:30] VITALS: BP 120/81
== END 2019-07-09 18:31 | disposition home or self-care (01) ==
LOC: EDUNIT# 15:24 → ER 15:26
DX: M43.6 Torticollis (principal); K21.9 Gastro-esophageal reflux disease without esophagitis; F17.210 Nicotine dependence, cigarettes, uncomplicated; Z90.49 Acquired absence of other specified parts of digestive tract; Z90.89 Acquired absence of other organs; Z87.440 Personal history of urinary (tract) infections; Z82.49 Family history of ischemic heart disease and other diseases of the circulatory system
CPT/HCPCS: 99284

== ENCOUNTER → 2019-11-01 | Outpatient (CLI) | payer BC, OTHER ==
[~2019-11-01] MED LIST changes: +NAPR-1071 PO; +ORPH100T PO
--- NOTE | 2019-11-01 17:09 | Diagnostic Imaging Report ---
PROCEDURE: US Non-ob pelvis comp/trans. TECHNIQUE: Multiple realtime grayscale images were obtained of the pelvis in various projections endovaginally. Transabdominal imaging was also performed. INDICATION: IUD complications, dyspareunia. FINDINGS: Transabdominal and transvaginal imaging of the pelvis demonstrates poor visualization of the IUD. This does appear to be in the endometrium. No fluid collections are present. The uterus measures 8.3 x 4.2 x 5.2 cm. The endometrium is 4 mm thick. Flow is seen to the right ovary. The right ovary has a 2.3 x 2.2 x 2.0 cm cyst. Right ovary measures 5.3 x 3.6 x 2.2 cm. The left ovary is never identified. IMPRESSION: 1. The left ovary is never identified. 2. The right ovary has a 2.3 cm simple cyst. 3. The IUD is not well identified but appears to be within the endometrium in the fundus. Dictated by: Dictated on workstation # [id number]
== END ==
LOC: RAD 15:28
PROVIDERS: ATTEND Obstetrics & Gynecology
DX: T83.39XA Other mechanical complication of intrauterine contraceptive device, initial encounter (principal); N83.202 Unspecified ovarian cyst, left side; N94.19 Other specified dyspareunia; Z97.5 Presence of (intrauterine) contraceptive device
CPT/HCPCS: 76830; 76856

== ENCOUNTER → 2020-06-03 | Outpatient (CLI) | payer BC ==
--- NOTE | 2020-06-03 17:43 | Diagnostic Imaging Report ---
PROCEDURE: US Non-ob pelvis comp/trans. TECHNIQUE: Multiple realtime grayscale images were obtained of the pelvis in various projections endovaginally. Transabdominal imaging was also performed. INDICATION: Pelvic pain, right greater than left. COMPARISON: 11/01/2019. FINDINGS: Uterus is anteverted and measures 7.7 cm in length x 3.5 cm in AP dimension x 4.9 cm transversely. No focal myometrial masses are seen. Indwelling intrauterine contraceptive device is identified within the endometrial canal. Small amount of fluid is also present within the endometrial canal. Included portions of the cervix are unremarkable. Within the right adnexa, there is a tubular structure which contains low-level internal echogenicity. Performing community health agent reports no evidence of significant peristalsis. Structure in question measures approximately 1 cm in diameter. Normal-appearing separate right ovary is identified and measures 3.1 x 1.6 x 1.7 cm. Left ovary cannot be adequately identified. There is no free fluid. IMPRESSION: 1. Small amount of fluid and intrauterine contraceptive device are identified within the endometrial canal. 2. Tubular fluid-filled structure of the right adnexa. Conceivably, this could be on the basis of a loop of bowel, but performing community health agent reports no appreciable peristalsis. Therefore, this does also raise concern for potential hydrosalpinx. Pyosalpinx would be within the differential as well. If further imaging evaluation is indicated, CT or MRI may be of benefit. Dictated on workstation # [id number]
== END ==
LOC: RAD 12:30
PROVIDERS: ATTEND Obstetrics & Gynecology
DX: N94.19 Other specified dyspareunia (principal); Z97.5 Presence of (intrauterine) contraceptive device
CPT/HCPCS: 76830; 76856

== ENCOUNTER 2020-06-18 05:28 | Outpatient (RCR) | payer BC ==
[~2020-06-18] VITALS: Ht 165 cm; Wt 66.8 kg
[2020-06-22] MEDS ORDERED: IBUP-1773 PO (10:51)
[2020-06-22] MEDS ORDERED: HYDR-4226 PO (10:51)
== END 2020-06-18 09:30 | disposition home or self-care (01) ==
LOC: PREOP 05:28
PROVIDERS: ATTEND Obstetrics & Gynecology
DX: Z01.812 Encounter for preprocedural laboratory examination (principal); N83.8 Other noninflammatory disorders of ovary, fallopian tube and broad ligament; Z20.828 Contact with and (suspected) exposure to other viral communicable diseases
CPT/HCPCS: 87635

== ENCOUNTER 2020-06-22 09:13 | Day surgery (SDC) | payer BC ==
[~2020-06-22] VITALS: Ht 165 cm; Wt 66.8 kg
[2020-06-22] VITALS (12 sets, daily range): BP systolic 93–113; BP diastolic 59–87
[2020-06-22] MEDS ORDERED: BUPIVACAINE 0.25% 30 ML (SENSORCAINE) VIAL ONE (09:21)
[2020-06-22] MEDS ORDERED: ROCURONIUM 10 MG/ML 5 ML SYRINGE IV ONE (09:37)
[2020-06-22] MEDS ORDERED: SEVOFLURANE (ULTANE) 15 ML INHAL SOLN ONE (09:37)
[2020-06-22] MEDS ORDERED: LIDOCAINE PF 2% 5 ML (XYLOCAINE) VIAL ONE (09:37)
[2020-06-22] MEDS ORDERED: MIDAZOLAM 2 MG/2 ML (VERSED) VIAL ONE (09:37)
[2020-06-22] MEDS ORDERED: ONDANSETRON 4 MG/2 ML (SDV) Z0FRAN ONE (09:37)
[2020-06-22] MEDS ORDERED: proPOfol 200 MG/20 ML (DIPRIVAN) VIAL IV ONE (09:37)
[2020-06-22] MEDS ORDERED: NEOSTIGMINE 3 MG/3 ML VIAL ONE (09:37)
[2020-06-22] MEDS ORDERED: GLYCOPYRROLATE 0.2 MG/ML (ROBINUL) 2 ML VIAL ONE (09:37)
[2020-06-22] MEDS ORDERED: fentaNYL INJECTION 100 MCG/2 ML AMP ONE (09:38)
[2020-06-22] MEDS: LACTATED RINGERS 1,000 ML IV PRN ×2 (09:45→12:40)
[2020-06-22 09:57] LABS: BASOPHILS % (AUTO) 1 % (0-10); EOSINOPHILS # (AUTO) 0.3 10^3/uL (0.0-0.3); EOSINOPHILS % (AUTO) 3 % (0-10); HEMATOCRIT 46 % (35-52); HEMOGLOBIN 15.5 g/dL (11.5-16.0); LYMPHOCYTES # (AUTO) 2.1 10^3/uL (1.0-4.0); LYMPHOCYTES % (AUTO) 25 % (12-44); MEAN CORPUSCULAR HEMOGLOBIN 31 pg (25-34); MEAN CORPUSCULAR HGB CONC 34 g/dL (32-36); MEAN CORPUSCULAR VOLUME 91 fL (80-99); MONOCYTES # (AUTO) 0.7 10^3/uL (0.0-1.0); MONOCYTES % (AUTO) 8 % (0-12); NEUTROPHILS # (AUTO) 5.2 10^3/uL (1.8-7.8); NEUTROPHILS % (AUTO) 63 % (42-75); PLATELET COUNT 263 10^3/uL (130-400); WHITE BLOOD COUNT 8.3 10^3/uL (4.3-11.0)
[2020-06-22] MEDS ORDERED: D5 LR IV SOLUTION 1,000 ML IV SCH (10:49)
--- NOTE | 2020-06-22 10:49 | Progress Note-Pre Operative ---
Pre-Operative Progress Note H&P Reviewed The H&P was reviewed, patient examined and no changes noted. Date Seen by Provider: Jun 22, 2020 Time Seen by Provider: 10:45 Date H&P Reviewed: Jun 22, 2020 Time H&P Reviewed: :45 Pre-Operative Diagnosis: CPP, Right adnexal cyst MERY FLOWER DO Jun 22, 2020 10:49
[2020-06-22] MEDS ORDERED: HYDR-4226 PO (10:51)
[2020-06-22] MEDS ORDERED: IBUP-1773 PO (10:51)
--- NOTE | 2020-06-22 10:52 | Discharge Inst-Women's Service ---
Discharge Inst-Women's Serv Depart Medication/Instructions New, Converted or Re-Newed RX: RX on Chart Problems Reviewed?: Yes Consults/Follow Up Additional Follow Up: Yes Orders/Referrals Dr. Reagan in 7-10 days Activity Activity: Activity as Tolerated Driving Instructions: No Driving for 1 Week NO SMOKING: NO SMOKING Nothing Inside Vagina: No Douching, No [place], No Tampons Diet Discharge Diet: No Restrictions Symptoms to Report to : Bleeding Excessive, Pain Increased, Fever Over 101 Degrees F, Vaginal Bleeding Increase, Questions/Concerns For Any Problems or Questions: Contact Your Physician Skin/Wound Care Infection Signs and Symptoms: Increased Redness, Foul Odor of Wound, Increased Drainage, Skin Itchy or Has a Rash, Increased Swelling, Temperature Above 101 F Operative Area Clean and Dry: Keep Incision Clean/Dry Stitches/[place]/Dermabond: Dermabond, Care of Stitches Bathing Instructions: MERY Steel DO Jun 22, 2020 10:52
[2020-06-22] MEDS ORDERED: ONDANSETRON 4 MG/2 ML (SDV) Z0FRAN IVP PRN (11:00)
[2020-06-22] MEDS ORDERED: HYDROcodone/APAP 5 MG/325 MG (LORTAB) TAB PO PRN (11:00)
[2020-06-22] MEDS ORDERED: KETOROLAC 30 MG/ML VIAL IVP ONE (11:00)
[2020-06-22] MEDS ORDERED: KETOROLAC 30 MG/ML VIAL ONE (11:34)
[2020-06-22] MEDS ORDERED: HYDROmorphone 2 MG/ML VIAL (DILAUDID) ONE (11:35)
[2020-06-22] MEDS ORDERED: HYDROmorphone 2 MG/ML VIAL (DILAUDID) IV ONE (12:00)
[2020-06-22] MEDS: ONDANSETRON 4 MG/2 ML (SDV) Z0FRAN IVP PRN ×2 (12:25→12:40)
[2020-06-22] MEDS ORDERED: ONDANSETRON 4 MG (ZOFRAN) ORAL DISSOLVE TAB ONE (14:40)
--- NOTE | 2020-06-22 22:19 | OPERATIVE REPORT ---
DATE OF SERVICE: PREOPERATIVE DIAGNOSES: 1. A 30-year-old female with chronic pelvic pain. 2. Adnexal cyst. POSTOPERATIVE DIAGNOSES: 1. A 30-year-old female with chronic pelvic pain. 2. Adnexal cyst. 3. Endometriosis. PROCEDURE: Laparoscopic ablation of endometriosis with bilateral salpingectomy. SURGEON: Art Reagan DO ANESTHESIA: General endotracheal. ESTIMATED BLOOD LOSS: Minimal. URINE OUTPUT: 400 mL clear at the end of the procedure. FLUIDS: 1000 mL lactated Ringer's solution. FINDINGS: Grossly normal appearing uterus, normal-appearing ovaries. Endometriosis implants of the previous low transverse incision from scar as well as mild dilation of bilateral fallopian tubes. SPECIMEN SENT: Bilateral fallopian tubes. INDICATIONS FOR PROCEDURE: This 30-year-old female is the patient who has returned to my office with recurrent issues with pain with intercourse. She thought may be secondary to her IUD. She also reported really heavy painful periods that are on rare occasion, also having some right-sided lower abdominal pain at all times. Pelvic ultrasound revealed a cystic structure on the right that was possibly consistent with hydrosalpinx. I discussed with the patient addressing this with laparoscopy. The patient also has a family history of endometriosis. We discussed evaluation for that. Risks of the procedure were discussed with the patient in detail including risk of bleeding, infection, damage to surrounding structures including, but not limited to bowel, bladder, ureter, kidneys, possible need for reoperation, postoperative complications that may occur, recovery timeframe, risk from anesthesia and even . Everything was discussed with the patient in detail, consent was obtained in the preoperative area and the patient was taken to the operating room. OPERATIVE REPORT IN DETAIL: Once in the operating room, anesthesia was found to be adequate, placed in dorsal lithotomy position, prepped and draped in normal sterile fashion where a timeout was performed. A Oconnor catheter was placed using sterile technique. A sponge stick was placed in the patient's vagina to not remove the IUD. I then performed change of gloves. Turned my attention to the abdomen where infraumbilically I infiltrated this area using 0.25% Marcaine and make a 5 mm incision with a knife and directed a blunt laparoscopic trocar through the incision until intraperitoneal placement is confirmed using saline drop test. CO2 gas insufflation, the opening pressure was noted to be 2 mmHg. I proceeded to maximum pressure of 15 mmHg, at which point I am able to confirm with laparoscopy intraperitoneal placement. I then had the patient placed in steep Trendelenburg where I am able to visualize all my pelvic anatomy as described in my findings above. I need two separate trocars in order to perform the procedure as documented. A suprapubic trocar and a right lower quadrant trocar are placed under direct visualization of the laparoscope. The skin was infiltrated using 0.25% Marcaine. Incisions were made with a knife and trocars were placed. Once they were in place, I removed the fallopian tubes bilaterally using a LigaSure bipolar cauterized starting at the proximal isthmic portion and take this down the mesosalpinx amputating the fallopian tube from its surrounding blood supply. Once this was done on both sides, cauterization using a spatula is done of the endometriosis implant that was described earlier. Evaluation of the rest of the pelvic anatomy appears to be grossly normal. There is no evidence of endometriosis and ovarian fossa, posterior cul-de-sac, uterosacral ligaments, anterior cul-de-sac as well. Upper abdominal anatomy appears grossly normal as well, after which I removed the lower two trocars under direct visualization of the laparoscope. Infraumbilical trocars left in place to release insufflation and to introduce 10 mL of 0.25% Marcaine into the peritoneal cavity for postoperative pain management. The patient then taken out of steep Trendelenburg where the trocars were removed as well. The skin was reapproximated using 5-0 Monocryl in interrupted subcuticular stitches. Dermabond was applied to incision and Band-Aids were placed over these incisions as well. Oconnor catheter was removed. Sponge stick was removed from the patient's vagina. The patient tolerated the procedure well and sent to recovery area in stable condition. Lap and sponge counts were correct at the end of the procedure. Instrument counts correct as well. Job ID: [id number] DocumentID: [id number] Dictated Date: 06/22/2020 12:13:09 Manufacturing Plant Controller Date: 06/22/2020 22:18:40 Dictated By: DO NOMAN AL
--- NOTE | 2020-06-23 18:03 | Anesthesia-General Post-Op ---
General Patient Condition Mental Status/LOC: Same as Preop Cardiovascular: Satisfactory Nausea/Vomiting: Absent Respiratory: Satisfactory Pain: Controlled Complications: Absent Post Op Complications Complications None Follow Up Care/Instructions Patient Instructions None needed. Anesthesia/Patient Condition Patient Condition Patient is doing well, no complaints, stable vital signs, no apparent adverse anesthesia problems. No complications reported per nursing. [place] [facility] [place] Yes REI SLATER CRNA Jun 23, 2020 18:03
== END 2020-06-22 14:45 | disposition home or self-care (01) ==
LOC: SDC 09:13
PROVIDERS: ATTEND Obstetrics & Gynecology
DX: N83.8 Other noninflammatory disorders of ovary, fallopian tube and broad ligament (principal); R10.2 Pelvic and perineal pain; G89.29 Other chronic pain; N80.9 Endometriosis, unspecified; N94.10 Unspecified dyspareunia; Z83.3 Family history of diabetes mellitus; Z82.49 Family history of ischemic heart disease and other diseases of the circulatory system; F17.210 Nicotine dependence, cigarettes, uncomplicated
CPT/HCPCS: 36415; 84703; 85025; 86850; 86900; 86901; 87081; 88302; 94664

== ENCOUNTER → 2023-07-19 | Outpatient (CLI) | payer BC ==
[~2023-07-19] MED LIST changes: +ALBU8.5H6 IH; -ORPH100T PO; +ORPH100T3 PO; -RT-ALBUINH IH
--- NOTE | 2023-07-19 16:53 | Diagnostic Imaging Report ---
INDICATION: Dyspareunia. EXAMINATION: Ultrasound non-OB pelvis, 07/19/2023. COMPARISON: 06/03/2020. FINDINGS: Uterus measures 0.3 cm in length. IUD seen within the endometrium with the endometrium measuring 0.7 cm in thickness. There is some fluid within the endometrial canal. Right ovary is 2.9 cm in greatest dimension and left 3.7 cm. Bilateral follicles noted. There is vascularity to the ovaries. No free fluid. No adnexal mass. IMPRESSION: 1. IUD noted in the endometrium with some fluid in the canal also noted. 2. Adnexa unremarkable. Dictated by: Dictated on workstation # [id number]
== END ==
LOC: RAD 13:45
PROVIDERS: ATTEND Obstetrics & Gynecology
DX: N94.10 Unspecified dyspareunia (principal); Z97.5 Presence of (intrauterine) contraceptive device
CPT/HCPCS: 76830; 76856